=== PATIENT | female | born 1945 | race Two or more races ===

== ENCOUNTER → 2017-01-14 | Outpatient (CLI) | payer MEDICARE ==
[~2017-01-14] MED LIST: /AMIO20TA PO; ALBU17IN INH; ALLO10TA PO; BACT800T5 PO; COLC1TAB14 PO; IMOD2TAB16 PO; KCL PO; LACT10SO15 PO; LEVO50TA4 PO; MAGN400T5 PO; METO2.5T PO; METO25TA2 PO; MIRA255PW PO; PANT40TA2 PO; PRED20TA PO; SENO8.6T9 PO; SPIR25TA2 PO; TORS20TA2 PO; TYLE500T78 PO; VITAD1000T PO; XARE10TA PO; ZETI10TA21 PO; ZYRT10CA PO
--- NOTE | 2017-01-14 14:04 | REP ---
CT of the chest without IV contrast: Comparison is the PA plain film study dated 09/16/2013. There are no infiltrates or effusions. There are no masses or nodules. There is no pneumothorax. There is no mediastinal adenopathy. No axillary adenopathy. The study is insensitive for hilar adenopathy in the absence of IV contrast. Half The thoracic aorta is unremarkable. Cardiac size is normal. There are sternotomy wires. There is degenerative calcification in the mitral annulus. There is no pericardial effusion. In the visualized upper abdomen there is cholelithiasis. There are calcified granulomas in the liver and spleen. The adrenals are unremarkable. Impression: Essentially negative CT study of the chest. There are sternotomy wires and there is degenerative calcification of the mitral annulus. Cardiac size is normal. Calcified granulomas in the liver and spleen. Cholelithiasis. Signed by Andrés Carlton MD 01/14/2017 01:55 P
== END ==
LOC: M RAD 12:24
PROVIDERS: ATTEND Family Medicine Adult Medicine
DX: R06.02 Shortness of breath (principal)

== ENCOUNTER 2017-06-02 12:57 | Emergency (ER) | payer MEDICARE | END 2017-06-02 14:29 | disposition home or self-care (01) | LOC: M ED 12:57 | DX: M54.5 Low back pain (principal); I11.9 Hypertensive heart disease without heart failure; I25.10 Atherosclerotic heart disease of native coronary artery without angina pectoris; J45.909 Unspecified asthma, uncomplicated; Z87.442 Personal history of urinary calculi; Z95.1 Presence of aortocoronary bypass graft; Z79.899 Other long term (current) drug therapy; Z88.8 Allergy status to other drugs, medicaments and biological substances | CPT/HCPCS: 99282 ==

== ENCOUNTER 2017-11-16 06:20 | Day surgery (SDC) | payer MEDICARE ==
[~2017-11-16 06:20] MED LIST changes: -/AMIO20TA PO; +ACETAMINOPHEN 325 MG TAB PO; -ALBU17IN INH; -ALLO10TA PO; -BACT800T5 PO; -COLC1TAB14 PO; -IMOD2TAB16 PO; -KCL PO; -LACT10SO15 PO; -LEVO50TA4 PO; -MAGN400T5 PO; -METO2.5T PO; -METO25TA2 PO; -MIRA255PW PO; -PANT40TA2 PO; -PRED20TA PO; -SENO8.6T9 PO; -SPIR25TA2 PO; -TORS20TA2 PO; -TYLE500T78 PO; -VITAD1000T PO; -XARE10TA PO; -ZETI10TA21 PO; -ZYRT10CA PO
[2017-11-16] MEDS: TROPICAMIDE 1% OPHTH SOLN 2ML OD (06:53)
[2017-11-16] MEDS: CYCLOPENTOLATE 2% OPHTH SOLN 2ML BTL OD (06:53)
[2017-11-16] MEDS: PHENYLEPHRINE 2.5% OPHTH SOL 2ML OD (06:54)
[2017-11-16] MEDS: OFLOXACIN 0.3 % (OCUFLOX) OPTH SOL 5ML OD (06:54)
[2017-11-16] MEDS: LIDOCAINE 3.5 % 1ML OPHTH TOPICAL GEL OU (06:55)
[2017-11-16] MEDS ORDERED: MIDAZOLAM INJ 2 MG/2 ML VIAL (J2250) As Ordered (06:59)
[2017-11-16] MEDS ORDERED: PHENYLEPHRINE HCL 10 % OPHTH. SOL 5ML OD (07:00)
[2017-11-16] MEDS ORDERED: fentaNYL 100 MCG/2 ML INJECTION (J3010) As Ordered (07:00)
[2017-11-16] MEDS: BSS with VANC/TOB/EPI for EYE CASES IR (07:00)
[2017-11-16] MEDS: HEALON DUET (HEALON 10MG/ML 0.55ML & HEALON ENDOCOAT 30MG/ML 0.85ML) As Ordered (09:33)
[2017-11-16] MEDS: MOXIFLOXACIN IN BSS 0.25MG/0.25ML INTRACAMERAL INJ (OR EYE ONLY)(J2280) As Ordered (09:33)
[2017-11-16] MEDS: POVIDONE-IODINE 5% OPHTH PREP SOL 30ML As Ordered (09:33)
[2017-11-16] MEDS: LIDOCAINE 1% SDV 5 ML VIAL As Ordered (09:33)
[2017-11-16] MEDS: TRIAMCINOLONE PRES FR 40 MG/ML 1ML(TRIESENCE)(OR EYE ONLY)(J3300 PER 1MG) As Ordered (09:33)
[2017-11-16] MEDS ORDERED: AcetaZOLAMIDE 500 MG ER CAP As Ordered (10:05)
[2017-11-16] MEDS: AcetaZOLAMIDE 500 MG ER CAP PO (10:06)
[2017-11-16] MEDS ORDERED: ACETAMINOPHEN TAB 650MG DOSE (2X325MG) PO (10:15)
[2017-11-16] MEDS ORDERED: ONDANSETRON 4MG/2ML VIAL (J2405) IV (10:15)
[2017-11-16] MEDS ORDERED: TRIMETHOBENZAMIDE 300 MG CAP PO (10:15)
== END 2017-11-16 10:24 | disposition home or self-care (01) ==
LOC: M SDC 06:20
DX: H26.9 Unspecified cataract (principal); I25.10 Atherosclerotic heart disease of native coronary artery without angina pectoris; I10 Essential (primary) hypertension; Z95.1 Presence of aortocoronary bypass graft; I48.91 Unspecified atrial fibrillation; K21.9 Gastro-esophageal reflux disease without esophagitis; G47.30 Sleep apnea, unspecified; J45.909 Unspecified asthma, uncomplicated; E03.9 Hypothyroidism, unspecified; Z79.899 Other long term (current) drug therapy
CPT/HCPCS: 66984

== ENCOUNTER 2017-11-23 09:48 | Day surgery (SDC) | payer MEDICARE ==
[2017-11-23] MEDS: BSS with VANC/TOB/EPI for EYE CASES IR (07:00)
[2017-11-23] MEDS: LIDOCAINE 1% SDV 5 ML VIAL As Ordered (08:05)
[2017-11-23] MEDS: HEALON DUET (HEALON 10MG/ML 0.55ML & HEALON ENDOCOAT 30MG/ML 0.85ML) As Ordered (08:05)
[2017-11-23] MEDS: POVIDONE-IODINE 5% OPHTH PREP SOL 30ML As Ordered (08:05)
[2017-11-23] MEDS: MOXIFLOXACIN IN BSS 0.25MG/0.25ML INTRACAMERAL INJ (OR EYE ONLY)(J2280) As Ordered (08:05)
[2017-11-23] MEDS: TRIAMCINOLONE PRES FR 40 MG/ML 1ML(TRIESENCE)(OR EYE ONLY)(J3300 PER 1MG) As Ordered (08:05)
[~2017-11-23 09:48] MED LIST changes: +MIDAZOLAM INJ 2 MG/2 ML VIAL (J2250) As Ordered; +PHENYLEPHRINE HCL 10 % OPHTH. SOL 5ML OS; +fentaNYL 100 MCG/2 ML INJECTION (J3010) As Ordered
[2017-11-23] MEDS: PHENYLEPHRINE 2.5% OPHTH SOL 2ML OS (11:55)
[2017-11-23] MEDS: OFLOXACIN 0.3 % (OCUFLOX) OPTH SOL 5ML OS (11:55)
[2017-11-23] MEDS: LIDOCAINE 3.5 % 1ML OPHTH TOPICAL GEL OU (11:56)
[2017-11-23] MEDS: CYCLOPENTOLATE 2% OPHTH SOLN 2ML BTL OS (11:56)
[2017-11-23] MEDS: TROPICAMIDE 1% OPHTH SOLN 2ML OS (11:56)
[2017-11-23] MEDS ORDERED: TRIMETHOBENZAMIDE 300 MG CAP PO (14:00)
[2017-11-23] MEDS: AcetaZOLAMIDE 500 MG ER CAP PO (14:11)
== END 2017-11-23 14:34 | disposition home or self-care (01) ==
LOC: M SDC 09:48
DX: H26.9 Unspecified cataract (principal); I48.91 Unspecified atrial fibrillation; I25.10 Atherosclerotic heart disease of native coronary artery without angina pectoris; I11.0 Hypertensive heart disease with heart failure; M10.9 Gout, unspecified; E03.9 Hypothyroidism, unspecified; K21.9 Gastro-esophageal reflux disease without esophagitis; R29.898 Other symptoms and signs involving the musculoskeletal system; M15.0 Primary generalized (osteo)arthritis; R06.02 Shortness of breath; E78.5 Hyperlipidemia, unspecified; L50.9 Urticaria, unspecified; E55.9 Vitamin D deficiency, unspecified; J45.909 Unspecified asthma, uncomplicated; G47.33 Obstructive sleep apnea (adult) (pediatric); J30.9 Allergic rhinitis, unspecified; I50.32 Chronic diastolic (congestive) heart failure; K59.00 Constipation, unspecified; K64.9 Unspecified hemorrhoids; R73.01 Impaired fasting glucose; M54.5 Low back pain; E66.8 Other obesity; Z88.6 Allergy status to analgesic agent; Z88.8 Allergy status to other drugs, medicaments and biological substances; Z79.899 Other long term (current) drug therapy; Z79.01 Long term (current) use of anticoagulants; Z78.0 Asymptomatic menopausal state; Z98.51 Tubal ligation status
CPT/HCPCS: 66984

== ENCOUNTER → 2018-08-04 | Outpatient (REF) | payer MEDICARE ==
[~2018-08-04] MED LIST changes: -ACETAMINOPHEN 325 MG TAB PO; +ALBU17IN INH; +ALLO10TA PO; +AMIO1TAB PO; +BACT800T5 PO; +COLC1TAB14 PO; +IMOD2TAB16 PO; +KCL PO; +LACT10SO15 PO; +LEVO50TA4 PO; +LEVO75TA4 PO; +MAGN400T5 PO; +METO2.5T PO; +METO25TA2 PO; -MIDAZOLAM INJ 2 MG/2 ML VIAL (J2250) As Ordered; +PANT40TA2 PO; -PHENYLEPHRINE HCL 10 % OPHTH. SOL 5ML OS; +POLY1POW4 PO; +PRED20TA PO; +ROBA500T PO; +SENO8.6T9 PO; +SPIR25TA2 PO; +TORS20TA2 PO; +TYLE500T78 PO; +VITAD1000T PO; +XARE10TA PO; +ZETI10TA21 PO; +ZYRT10CA PO; -fentaNYL 100 MCG/2 ML INJECTION (J3010) As Ordered
[2018-08-04 14:09] LABS: PERCENT SATURATION 13.4 % (13.2-45.0)
[2018-08-04 14:14] LABS: FOLATE 12.3 NG/ML
== END ==
LOC: M LAB REF 13:22
PROVIDERS: ATTEND Internal Medicine Nephrology
DX: D64.9 Anemia, unspecified (principal)

== ENCOUNTER → 2018-08-11 | Outpatient (CLI) | payer MEDICARE ==
--- NOTE | 2018-08-12 07:30 | REP ---
REASON FOR EXAM: Kidney disease. Right kidney measures 10.5 x 5.1 x 3.2 cm. Left kidney measures 9.1 x 4.5 x 5 cm. The renal cortical echoes are slightly diffusely increased with preservation of corticomedullary differentiation. The renal cortices appear thin. There are no solid masses. There is no hydronephrosis. Seen in the inferior pole of the right kidney, there is a 1.7 x 1.6 x 1.5 cm sized hypoechoic structure with low level echoes and not exhibiting posterior wall enhancement or increase through transmission. IMPRESSION: 1. There is evidence of medical renal disease. 2. There is a hypoechoic possibly cystic structure arising from the right kidney as described above. Review of prior CT 09/16/2013 showed no evidence of a renal cyst. Significant motion artifact obscured the inferior pole of the right kidney on that exam. I would suggest renal MRI at this time for further evaluation of this area. Electronically Signed by Stanford Chairez DO 08/12/2018 08:28 A
== END ==
LOC: M RAD 12:50
PROVIDERS: ATTEND Internal Medicine Nephrology
DX: N18.3 Chronic kidney disease, stage 3 (moderate) (principal); I12.9 Hypertensive chronic kidney disease with stage 1 through stage 4 chronic kidney disease, or unspecified chronic kidney disease; M1A.30X0 Chronic gout due to renal impairment, unspecified site, without tophus (tophi)

== ENCOUNTER 2019-12-20 20:10 | Emergency (ER) | payer MEDICARE ==
[~2019-12-20] VITALS: Ht 152.4 cm; Wt 86.4 kg
[2019-12-20 20:58] LABS: BASO # 0.1 10^3/uL (0.0-0.2); BASO % 0.3 % (0.0-1.0); EOS # 0.1 10^3/uL (0.0-0.5); EOS % 0.5 % (0.0-3.0); HEMATOCRIT 41.7 % (36.0-47.0); HEMOGLOBIN 13.2 g/dl (12.0-15.5); LYMPH # 0.8 10^3/uL (1.5-5.0); LYMPH % 4.8 % (24.0-44.0); MEAN CORPUSCULAR HEMOGLOBIN 29.5 pg (27.0-33.0); MEAN CORPUSCULAR HGB CONC 31.7 g/dl (32.0-36.5); MEAN CORPUSCULAR VOLUME 93.1 fl (80.0-96.0); MONO # 0.6 10^3/uL (0.0-0.8); MONO % 3.4 % (0.0-5.0); NEUTROPHILS # 14.6 10^3/uL (1.5-8.5); NEUTROPHILS % 90.4 % (36.0-66.0); PLATELET COUNT, AUTOMATED 288 10^3/uL (150-450); RED BLOOD COUNT 4.48 10^6/uL (4.00-5.40); WHITE BLOOD COUNT 16.2 10^3/uL (4.0-10.0)
[2019-12-20 21:13] LABS: INR 0.98; PROTHROMBIN TIME 13.1 SECONDS (12.5-14.3)
--- NOTE | 2019-12-20 21:13 | REPVR ---
PROCEDURE INFORMATION: Exam: XR Chest, 1 View Exam date and time: 12/20/2019 8:26 PM Age: 74 years old Clinical indication: Other: Chest pain TECHNIQUE: Imaging protocol: XR of the chest Views: 1 view. COMPARISON: CT Chest without contrast 01/14/2017 12:35 PM FINDINGS: Lungs: Unremarkable. No consolidation. Pleural space: Unremarkable. No pleural effusion. No pneumothorax. Heart/Mediastinum: Stable cardiomegaly. Bones/joints: Stable changes of prior sternotomy and cardiac valve replacement. IMPRESSION: 1. Cardiomegaly. 2. No acute findings. Electronically signed by: Harman Rivera On 12/20/2019 21:13:22 PM
[2019-12-20] MEDS ORDERED: GI COCKTAIL 50ML BTL(HYOSCYAMINE/MAALOX/LIDOCAINE VISCOUS)(1:3:1) PO ONE (21:15)
[2019-12-20 21:25] LABS: ALBUMIN 3.8 GM/DL (3.2-5.2); BILIRUBIN,DIRECT 0.7 MG/DL (0.0-0.2); CALCIUM LEVEL 9.6 MG/DL (8.8-10.2); CK-MB VALUE MASS 1.6 NG/ML (<3.6); CREATININE FOR GFR 1.69 MG/DL (0.55-1.30); GLOMERULAR FILTRATION RATE 31.5 (>39); MB/CK RELATIVE INDEX 3.14 (< OR =4); TOTAL PROTEIN 7.4 GM/DL (6.4-8.2); TROPONIN I 0.07 NG/ML (< 0.10)
[2019-12-20] MEDS ORDERED: PERCOCET 5MG/325MG TAB PO ONE (22:00)
--- NOTE | 2019-12-20 22:57 | REPVR ---
PROCEDURE INFORMATION: Exam: CT Chest Without Contrast Exam date and time: 12/20/2019 10:28 PM Age: 74 years old Clinical indication: Chest pain TECHNIQUE: Imaging protocol: Computed tomography of the chest without contrast. 3D rendering (Not supervised by radiologist): MIP and/or 3D reconstructed images were created by the technologist. Radiation optimization: All CT scans at this facility use at least one of these dose optimization techniques: automated exposure control; mA and/or kV adjustment per patient size (includes targeted exams where dose is matched to clinical indication); or iterative reconstruction. COMPARISON: CT Chest without contrast 01/14/2017 12:35 PM FINDINGS: Lungs: Unremarkable. No consolidation. No masses. Pleural space: Unremarkable. No pneumothorax. No pleural effusion. Heart: Prior sternotomy and changes of cardiac valve replacements. Mild coronary artery atherosclerotic disease. Normal heart size. No pericardial effusion. Aorta: Unremarkable. No aortic aneurysm. Lymph nodes: Unremarkable. No enlarged lymph nodes. Bones/joints: Skeletal degenerative changes are noted. Soft tissues: Unremarkable. IMPRESSION: 1. No acute findings. 2. Changes of prior sternotomy and cardiac valve replacement. Electronically signed by: Harman Rivera On 12/20/2019 22:56:30 PM
[2019-12-20] MEDS ORDERED: POTASSIUM CHLORIDE 10 MEQ SR TABLET PO ONE (23:00)
[2019-12-20] MEDS ORDERED: PERC5TAB12 PO (23:14)
[2019-12-20] MEDS ORDERED: OXYCODONE/APAP 5MG/325MG(BULK FOR ED) 1 TABLET PO ONE (23:15)
[2019-12-20 23:25] VITALS: BP 131/68
--- NOTE | 2019-12-21 17:49 | ECGEPIP ---
[facility] - ED Test Date: 2019-12-20 Pat Name: JCARLOS DIAS Department: Room: - Gender: Female [employer] Teacher: gabi : 1945 Requested By: MARILUZ Segundo Order Number: [id number] Reading MD: Dwight Starr Measurements Intervals [place] Rate: 94 P: HI: 0 QRS: -41 QRSD: 142 T: 77 QT: 416 QTc: 520 Interpretive Statements Supraventricular rhythm- suspect sinus but noisy baseline LEFT BUNDLE BRANCH BLOCK Comparison tracing not on file Electronically Signed on 12-21-2019 17:48:25 EDT by Dwight Starr
== END 2019-12-21 00:47 | disposition home or self-care (01) ==
LOC: M ED 20:10
DX: S39.012A Strain of muscle, fascia and tendon of lower back, initial encounter (principal); I44.7 Left bundle-branch block, unspecified; M62.830 Muscle spasm of back; I11.9 Hypertensive heart disease without heart failure; K21.9 Gastro-esophageal reflux disease without esophagitis; E03.9 Hypothyroidism, unspecified; J45.909 Unspecified asthma, uncomplicated; Z88.6 Allergy status to analgesic agent; Z88.8 Allergy status to other drugs, medicaments and biological substances; Z79.899 Other long term (current) drug therapy; Z79.01 Long term (current) use of anticoagulants

== ENCOUNTER 2019-12-25 19:57 | Inpatient (IN) | payer MEDICARE ==
[~2019-12-25] VITALS: Ht 152.4 cm; Wt 92.0 kg
[~2019-12-25 19:57] MED LIST changes: +PERC5TAB12 PO
[2019-12-25] MEDS ORDERED: GI COCKTAIL 50ML BTL(HYOSCYAMINE/MAALOX/LIDOCAINE VISCOUS)(1:3:1) PO ONE (20:30)
--- NOTE | 2019-12-25 20:49 | REPVR ---
PROCEDURE INFORMATION: Exam: XR Chest, 1 View Exam date and time: 12/25/2019 8:33 PM Age: 74 years old Clinical indication: Other: Cp; Additional info: Chest pain TECHNIQUE: Imaging protocol: XR of the chest Views: 1 view. COMPARISON: CT Chest without contrast 12/20/2019 10:24 PM FINDINGS: Lungs: Unremarkable. No consolidation. Pleural space: Unremarkable. No pleural effusion. No pneumothorax. Heart/Mediastinum: Cardiomegaly. Bones/joints: Status post sternotomy. IMPRESSION: 1. Cardiomegaly. 2. No acute infiltrates. Electronically signed by: Flip Rodriges On 12/25/2019 20:49:21 PM
[2019-12-25 20:50] LABS: BASO # 0.1 10^3/uL (0.0-0.2); BASO % 0.5 % (0.0-1.0); EOS # 0.2 10^3/uL (0.0-0.5); EOS % 1.1 % (0.0-3.0); HEMATOCRIT 42.1 % (36.0-47.0); HEMOGLOBIN 13.2 g/dl (12.0-15.5); LYMPH % 7.4 % (24.0-44.0); MEAN CORPUSCULAR HEMOGLOBIN 28.8 pg (27.0-33.0); MEAN CORPUSCULAR HGB CONC 31.4 g/dl (32.0-36.5); MEAN CORPUSCULAR VOLUME 91.9 fl (80.0-96.0); MONO # 0.6 10^3/uL (0.0-0.8); MONO % 4.1 % (0.0-5.0); NEUTROPHILS # 11.7 10^3/uL (1.5-8.5); PLATELET COUNT, AUTOMATED 306 10^3/uL (150-450); RED BLOOD COUNT 4.58 10^6/uL (4.00-5.40); WHITE BLOOD COUNT 13.6 10^3/uL (4.0-10.0)
[2019-12-25] MEDS ORDERED: PANTOPRAZOLE 40MG TAB (PROTONIX) PO SCH (21:00)
[2019-12-25 21:04] LABS: INR 0.98; PROTHROMBIN TIME 13.2 SECONDS (12.5-14.3)
[2019-12-25 21:13] LABS: ALBUMIN 3.7 GM/DL (3.2-5.2); BILIRUBIN,DIRECT 0.8 MG/DL (0.0-0.2); BILIRUBIN,TOTAL 1.2 MG/DL (0.2-1.0); TOTAL PROTEIN 7.4 GM/DL (6.4-8.2)
[2019-12-25] MEDS ORDERED: NS 1,000 ML IV ONE (21:30)
[2019-12-25] MEDS: MORPHINE 2 MG/ML 1ML VIAL (J2270) IV PRN ×2 (21:40→22:23)
--- NOTE | 2019-12-25 22:20 | REPVR ---
PROCEDURE INFORMATION: Exam: CT Abdomen And Pelvis Without Contrast Exam date and time: 12/25/2019 9:32 PM Age: 74 years old Clinical indication: Abdominal pain; Localized; Right; Additional info: Right sided abdominal pain TECHNIQUE: Imaging protocol: Computed tomography of the abdomen and pelvis without contrast. Radiation optimization: All CT scans at this facility use at least one of these dose optimization techniques: automated exposure control; mA and/or kV adjustment per patient size (includes targeted exams where dose is matched to clinical indication); or iterative reconstruction. COMPARISON: CT ABD PELVIS W/O CONTRAST 09/16/2013 1:52 PM (The report from this study was not available for review at the time of this interpretation.) FINDINGS: Lungs: The imaged portions of the lung bases are clear. The lungs were not fully imaged. Heart: There is a tricuspid valve prosthesis. Extensive mitral annular calcifications are present. The left atrium is dilated. No pericardial effusion is seen. Liver: There are calcified granulomas in the liver. No liver mass is identified. The contour of the liver is smooth. No hepatomegaly. Gallbladder and bile ducts: The gallbladder is distended and contains rim calcified gallstones. No gallbladder wall thickening, pericholecystic fluid, or inflammatory fat stranding is noted around the gallbladder. No intrahepatic biliary ductal dilation is noted. The common bile duct is dilated and measures 20 mm in diameter at the level of the becca hepatis and there is a 7 mm calcified stone in the distal portion of the common bile duct that was not present in the prior CT on 09/16/2013 (image 44 of the coronal series 202 and image 68 of the axial series 201). Pancreas: Unremarkable. No ductal dilation. Spleen: There are multiple calcified granulomas in the spleen. No splenomegaly. Adrenals: Unremarkable. No adrenal mass is noted. Kidneys and ureters: There is a 2 cm benign-appearing exophytic cyst arising from the inferior pole of the right kidney, which is stable compared to the prior CT abdomen and pelvis on 09/16/2013 and for which further imaging follow-up is not necessary. The unenhanced left kidney is unremarkable. No stones are noted in the kidneys or ureters. There is no hydronephrosis or hydroureter. Stomach and bowel: The stomach and small bowel are unremarkable. There is sigmoid diverticulosis without evidence for diverticulitis. There is no evidence for a bowel obstruction, colitis, pneumatosis intestinalis, intussusception, volvulus, or perforated viscus. Appendix: Normal. There is no evidence for appendicitis. Intraperitoneal space: No free air. No ascites. No asbcess. Retroperitoneal space: No fluid collection. No mass. Vasculature: There is no abdominal aortic aneurysm or intramural hematoma. There are moderate atherosclerotic calcifications. Incidental note is made of small round calcifications in the pelvis, which are compatible with phleboliths. Lymph nodes: No enlarged lymph nodes. Urinary bladder: The partially distended urinary bladder is unremarkable. No stones or masses are seen in the bladder. Reproductive: The anteverted uterus contains a punctate calcification in the fundus that is unchanged compared to the prior CT abdomen and pelvis on 09/16/2013 and may represent a calcified uterine fibroid. The ovaries are age appropriate. Bones/joints: Median sternotomy suture wires were partially imaged. There is no fracture or bony destructive changes. There are degenerative changes in the lumbar spine. There is a mild retrolisthesis of L2 on L3, a mild retrolisthesis of L3 on L4, and a grade 1 anterolisthesis of L4 on L5. No pars defect is noted. 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 There are degenerative changes and chondrocalcinosis involving the pubic symphysis. There is partial ankylosis of the left sacroiliac joint. Soft tissues: There are small bilateral fat containing indirect inguinal hernias, which are similar in appearance compared to the prior CT abdomen and pelvis on 09/16/2013. There is laxity of the anterior abdominal wall musculature. IMPRESSION: 1. Cholelithiasis without CT evidence for cholecystitis. 2. Choledocholithiasis and dilation of the common bile duct (20 mm in diameter). 3. No stones in the kidneys, ureters, or urinary bladder. No hydronephrosis or hydroureter. 4. Sigmoid diverticulosis without evidence for diverticulitis. 5. Normal appendix. 6. Small bilateral fat containing indirect inguinal hernias, which are similar in appearance compared to the prior CT abdomen and pelvis on 09/16/2013. Electronically signed by: Sergey Morrison On 12/25/2019 22:20:28 PM
[2019-12-25] MEDS ORDERED: ZYLO300T6 PO (23:10)
[2019-12-25] MEDS ORDERED: CETI10TA PO (23:10)
[2019-12-25] MEDS ORDERED: POTA10TA17 PO (23:10)
[2019-12-25] MEDS ORDERED: COLC1TAB13 PO (23:10)
[2019-12-25] MEDS ORDERED: SPIR-10 PO (23:10)
[2019-12-25] MEDS ORDERED: METO25TA PO (23:10)
[2019-12-25] MEDS ORDERED: TORS20TA2 PO ×2 (23:10)
[2019-12-25] MEDS ORDERED: PANT40TA29 PO (23:10)
[2019-12-25] MEDS ORDERED: XARE15TA PO (23:10)
[2019-12-25] MEDS ORDERED: SYNT75TA PO (23:10)
[2019-12-25] MEDS ORDERED: DOCU100C17 PO (23:10)
[2019-12-25] MEDS ORDERED: AMIO200T3 PO (23:10)
[2019-12-25] MEDS ORDERED: POTA10CA32 PO (23:10)
[2019-12-25] MEDS ORDERED: COLCHICINE 0.6 MG TAB PO PRN (23:30)
[2019-12-26] VITALS (10 sets, daily range): BP systolic 99–130; BP diastolic 61–72
--- NOTE | 2019-12-26 00:25 | REPVR ---
PROCEDURE INFORMATION: Exam: US Abdomen, Limited; Right Upper Quadrant Exam date and time: 12/26/2019 12:11 AM Age: 74 years old Clinical indication: Abdominal pain; Acute; Additional info: Choledocholithiasis TECHNIQUE: Imaging protocol: US abdomen. Real time ultrasound with image documentation. Limited exam focused on the right upper quadrant. COMPARISON: 1. RENAL US 08/11/2018 1:[address] ABD PELVIS W/O CONTRAST 12/25/2019 9:13:08 PM FINDINGS: Liver: The echogenicity of the liver is within normal limits. No liver mass is identified from the images obtained. The contour of the liver is smooth. The calcified granulomas seen in the liver in the CT abdomen and pelvis on 12/25/2019 are not visualized in this study, which is due to differences in technique. Gallbladder: There are several gallstones in the gallbladder. No gallbladder wall thickening or pericholecystic fluid is present. No sonographic Cabral's sign was reported by the cytogenetics technologist. The gallbladder measures 12.9 cm x 4.1 cm x 4.7 cm. Common bile duct: The common bile duct is dilated and measures 9 mm in diameter at the level of the becca hepatis. The distal portion of the common bile duct was obscured by gas in the stomach and bowel. Pancreas: The imaged portion of the pancreas is unremarkable. The tail of pancreas is obscured by gas in the stomach and bowel. Right kidney: The right kidney measures 10.3 cm in length. The renal cortical echogenicity is within normal limits. There is a 1.5 cm benign-appearing simple exophytic cyst arising from the inferior pole of the right kidney for which further imaging follow-up is not recommended. There is no hydronephrosis. No obvious stones are seen in the renal collecting system. Intraperitoneal space: No free fluid is seen from the images obtained. IMPRESSION: 1. Cholelithiasis without sonographic evidence for cholecystitis. 2. Dilated common bile duct. The distal portion of the common bile duct was obscured by gas in the stomach and bowel. COMMENTS: Consistent with the [employer]'s Incidental Findings Committee white paper (J Am Jaqueline Radiol 2018): Any incidental renal lesion less than 1 cm or classified as too small to characterize, or any incidental cystic renal lesion characterized as simple-appearing, is likely benign. No follow-up imaging is recommended for these lesions per consensus recommendations based on imaging criteria. Electronically signed by: Sergey Morrison On 12/26/2019 00:24:46 AM
--- NOTE | 2019-12-26 01:10 | HPEPDOC ---
[facility] Medical History & Physical Date of Admission Dec 25, 2019 Date of Service: Dec 25, 2019 Attending Physician: DEREJE CALIXTO DO History and Physical CHIEF COMPLAINT: Chest pain HISTORY OF PRESENT ILLNESS: Jia Mcneil is a 74 YO F with history of atrial fibrillation on Xarelto, CAD status post multiple cardiac cath, history of tricuspid valve repair who first presented to the ED on 12/20/2019 complaining of chest and epigastric pain radiating to her back. She stated that the pain started after eating lunch and worsened throughout the day. She also reports nausea and some vomiting during that time. On the day, cardiac markers were trended, EKG was normal and she was sent home with pain regimen. Her epigastric pain worsened, which prompted her return to the ED tonight. She stated that she ate a bowl of clam chowder for lunch and within an hour experienced 10/10 epigastric pain radiating to her back and right shoulder. She tried taking antacids and pain medication and it was not relieved. In the ED, she was found to have cholelithiasis and dilated common bile duct, mild leukocytosis and mildly elevated AST. She also was found to have elevated lipase at 846. PAST MEDICAL HISTORY: 1. ARETHA 2. CKD 3 3. HTN 4. GERD 5. CAD s/p multiple LHC, no stents 6. Hypothyroidism 7. Asthma 8. Gout PAST SURGICAL HISTORY: 1. Tricuspid valve repair 2009 2. Cardiac cath in 2011, 2013, 2017 3. C section x 4 SOCIAL HISTORY: Never smoker, denies alcohol, denies illicit drug use FAMILY HISTORY: Noncontributory ALLERGIES: Please see below. REVIEW OF SYSTEMS: Constitutional: No Weight Change, No Fever, No Chills, No Night Sweats, No Fatigue, No Malaise ENT/Mouth: No Hearing Changes, No Ear Pain, No Nasal Congestion, No Sinus Pain, No Hoarseness, No sore throat, No Rhinorrhea, No Swallowing Difficulty Eyes: No Eye Pain, No Swelling, No Redness, No Foreign Body, No Discharge, No Vision Changes Cardiovascular: No palpitations, no cold extremities Respiratory: No Cough, No Wheezing, No Smoke Exposure, No Dyspnea Gastrointestinal: Reports severe 10/10 epigastric pain radiating to right shoulder and back, some nausea but no vomiting, denies diarrhea, right upper quadrant pain Genitourinary: No Dysmenorrhea, No DUB, No Dyspareunia, No Dysuria Musculoskeletal: No Arthralgias, No Myalgias, No Joint Swelling, No Joint Stiffness, No Back Pain, No Neck Pain, No Injury History Skin: No Skin Lesions, No Pruritis, No Hair Changes, No Breast/Skin Changes, No Nipple Discharge Neuro: No Weakness, No Numbness, No Paresthesias, No Loss of Consciousness, No Syncope, No Dizziness, No Headache, No Coordination Changes, No Recent Falls Psych: No Anxiety/Panic, No Depression, No Insomnia, No Personality Changes, No Delusions Heme/Lymph: No Bruising, No Bleeding, No Transfusions History, No Lymphadenopathy Endocrine: No Polyuria, No Polydipsia, No Temperature Intolerance HOME MEDICATIONS: Please see below. VITAL SIGNS: see below GENERAL: alert and oriented, in no apparent distress, pleasant and conversant in full sentences. HEENT: PERRL, EOMI, Oral mucous membranes are moist without lesions. NECK: The patient has no noted JVD. No adenopathy is appreciated. No thyromegaly CHEST/LUNGS: Lungs are clear bilaterally without rhonchi, rales, or wheezes. There is no subcutaneous air appreciated. There is no tenderness to the chest wall. HEART:Regular rate and rhythm. No murmurs, rubs, or gallops are appreciated. Distal pulses are 2+. No carotid bruits appreciated. ABDOMEN: Soft, tender to palpation in the right upper quadrant and epigastrum. No rosenbaum/cullens sign. No masses are appreciated. There are no peritoneal signs. There is no [place] sign. EXTREMITIES: No peripheral edema. There is no focal long bone tenderness or deformity. SKIN: The patient is very price appearing. The patients skin is warm and dry, without rashes or lesions. PSYCHIATRIC: AAO x 3, normal mood/affect NEUROLOGIC: The patient has 5/5 strength to the upper and lower extremities bilaterally. Sensation is intact throughout. Deep tendon reflexes are 2+ in all four extremities. There are no deficits to the cranial nerves. LABORATORY DATA: See below. IMAGING: CXR: FINDINGS: Lungs: Unremarkable. No consolidation. Pleural space: Unremarkable. No pleural effusion. No pneumothorax. Heart/Mediastinum: Cardiomegaly. Bones/joints: Status post sternotomy. IMPRESSION: 1. Cardiomegaly. 2. No acute infiltrates. CT ABD/PELVIS: IMPRESSION: 1. Cholelithiasis without CT evidence for cholecystitis. 2. Choledocholithiasis and dilation of the common bile duct (20 mm in diameter). 3. No stones in the kidneys, ureters, or urinary bladder. No hydronephrosis or hydroureter. 4. Sigmoid diverticulosis without evidence for diverticulitis. 5. Normal appendix. 6. Small bilateral fat containing indirect inguinal hernias, which are similar in appearance compared to the prior CT abdomen and pelvis on 09/16/2013. LIVER US: IMPRESSION: 1. Cholelithiasis without sonographic evidence for cholecystitis. 2. Dilated common bile duct. The distal portion of the common bile duct was obscured by gas in the stomach and bowel. MICROBIOLOGY: Please see below. ASSESSMENT: This is a 74-year-old female with atrial fibrillation, CAD who presented with chest pain found to have dilated common bile duct and cholelithiasis with no evidence of cholecystitis. PLAN: 1. Cholelithiasis with dilated common bile duct: -Discussed case with Gastroentrology (Lluvia), who will do ERCP tomorrow. NPO for now. Hold Xarelto for procedure -Liver function/tBili stable -Pain management with Morphine -IV Zofran for nausea 2. Pancreatitis: Lipase slightly elevated in 800s -IVF gentle hydration, pain management at stated 3. Atrial fibrillation: -Rate controlled, Hold Xarelto for procedure tomorrow -Continue home Amiodarone 4. Hypothyroidism: -Continue home Levothyroxine 5. History of CHF? No Echo on file: -Continue Spironolactone, Torsemide for now 6. CKD3: -Cr currently at baseline -Continue allopurinol 7. Hx Gout: -Continue Colchicine DVT ppx: BELEN/SCDs GI ppx: Protonix Vital Signs Vital Signs Date Time Temp Pulse Resp B/P (MAP) Pulse Ox O2 Delivery O2 Flow Rate FiO2 12/25/19 22:45 92 20 151/79 (103) 97 Room Air 12/25/19 19:59 97.6 Laboratory Data Labs 24H Laboratory Tests 2 12/25/19 20:05: Immature Granulocyte % (Auto) 0.9, Neutrophils (%) (Auto) 86.0H, Lymphocytes (%) (Auto) 7.4L, Monocytes (%) (Auto) 4.1, Eosinophils (%) (Auto) 1.1, Basophils (%) (Auto) 0.5, Neutrophils # (Auto) 11.7H, Lymphocytes # (Auto) 1.0L, Monocytes # (Auto) 0.6, Eosinophils # (Auto) 0.2, Basophils # (Auto) 0.1, Nucleated Red Blood Cells % (auto) 0.0, Prothrombin Time 13.2, Prothromb Time International Ratio 0.98, Total Bilirubin 1.2H, Direct Bilirubin 0.8H, Aspartate Amino Transf (AST/SGOT) 60H, Alanine Aminotransferase (ALT/SGPT) 69, Alkaline Phosphatase 204H, Total Protein 7.4, Albumin 3.7, Albumin/Globulin Ratio 1.0L, Lipase 846H 12/25/19 20:26: POC Troponin I (Misc) 0.02 12/25/19 20:29: POC Glucose (Misc Panel) 126H, POC Sodium (Misc Panel) 138, POC Potassium (Misc Panel) 3.1L, POC Chloride (Misc Panel) 92L, POC Total CO2 (Misc Panel) 32.0H, POC Blood Urea Nitrogen (Misc Panel 47H, POC Ionized Calcium (Misc Panel) 4.5, POC Creatinine (Misc Panel) 1.8H, POC Hematocrit (Misc Panel) 46.0 CBC/BMP Laboratory Tests 12/25/19 20:05 Home Medications Scheduled Allopurinol (Zyloprim) 300 Mg Tablet, 300 MG PO DAILY Amiodarone HCl (Amiodarone HCl) 200 Mg Tablet, 200 MG PO Q2D Docusate Sodium (Docusate Sodium) 100 Mg Capsule, 100 MG PO DAILY Levothyroxine Sodium (Synthroid) 75 Mcg Tablet, 75 MCG PO DAILY Pantoprazole Sodium (Pantoprazole Sodium) 40 Mg Tablet.dr, 40 MG PO QHS HAS NOT STARTED YET Potassium Chloride (Potassium Chloride) 10 Meq Capsule.er, 10 MEQ PO BID Rivaroxaban (Xarelto) 15 Mg Tablet, 15 MG PO DAILY Spironolactone (Spironolactone) 25 Mg Tablet, 25 MG PO DAILY Torsemide (Torsemide) 20 Mg Tablet, 20 MG PO DAILY Torsemide (Torsemide) 20 Mg Tablet, 10 MG PO QPM TAKES IN THE AFTERNOON Scheduled PRN Cetirizine HCl (Cetirizine HCl) 10 Mg Tablet, 10 MG PO QHS PRN for ITCHING Colchicine (Colchicine) 0.6 Mg Tablet, 0.6 MG PO DAILY PRN for GOUT FLARE-UP Metolazone (Metolazone) 2.5 Mg Tablet, 2.5 MG PO DAILY PRN for EDEMA TAKES WHEN THERE IS A WEIGHT GAIN OF 2 LBS Potassium Chloride (Potassium Chloride) 10 Meq Tab.er.prt, 10 MEQ PO DAILY PRN for ADDITIONAL SUPPLEMENTATION TAKES WITH METOLAZONE Allergies Coded Allergies: NSAIDS (Non-Steroidal Anti-Inflamma (Verified Allergy, Intermediate, 12/20/19) atorvastatin (Verified Allergy, Intermediate, 12/20/19) clonidine (Verified Allergy, Intermediate, 12/20/19) fosinopril (Verified Allergy, Intermediate, 12/20/19) A-FIB/CHADSVASC A-FIB History Current/History of A-Fib/PAF?: Yes Current PO Anticoag Therapy: Yes GME ATTESTATION GME ATTESTATION My faculty preceptor for this patient encounter was physically present during the encounter and was fully available. All aspects of the patient interview, examination, medical decision making process, and medical care plan development were reviewed and approved by the faculty preceptor. The faculty preceptor is aware and concurs with the plan as stated in the body of this note and will attest to such by his/her cosignature. JUAN ANTONIO SAUNDERS MD Dec 25, 2019 23:06
[2019-12-26] MEDS ORDERED: MORPHINE 2 MG/ML 1ML VIAL (J2270) IV PRN (01:15)
[2019-12-26] MEDS: ONDANSETRON 4MG/2ML VIAL IV PRN ×3 (01:17→19:00)
[2019-12-26] MEDS: LEVOTHYROXINE 75MCG TABLET (0.075MG) PO SCH (05:39)
[2019-12-26 06:22] LABS: HEMATOCRIT 36.5 % (36.0-47.0); MEAN CORPUSCULAR HGB CONC 32.9 g/dl (32.0-36.5); MEAN CORPUSCULAR VOLUME 91.3 fl (80.0-96.0); PLATELET COUNT, AUTOMATED 249 10^3/uL (150-450); WHITE BLOOD COUNT 15.4 10^3/uL (4.0-10.0)
[2019-12-26 06:52] LABS: BILIRUBIN,TOTAL 2.1 MG/DL (0.2-1.0); CREATININE FOR GFR 1.57 MG/DL (0.55-1.30); GLOMERULAR FILTRATION RATE 34.3 (>39); POTASSIUM SERUM 3.3 MEQ/L (3.5-5.1); TOTAL PROTEIN 6.1 GM/DL (6.4-8.2)
--- NOTE | 2019-12-26 07:41 | ECGEPIP ---
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
[2019-12-26] MEDS ORDERED: TORSEMIDE 20 MG TAB PO SCH (09:00)
[2019-12-26] MEDS: AMIODARONE 200 MG TAB (PACERONE) PO SCH (09:00)
[2019-12-26] MEDS: allopurinoL 300 MG TAB PO SCH (09:00)
[2019-12-26] MEDS ORDERED: SPIRONOLACTONE 25 MG TAB PO SCH (09:00)
[2019-12-26] MEDS ORDERED: PIPERACILLIN/TAZOBACTAM SOD 3.375 GM in D5W MINI-BAG PLUS 50 ML IV SCH (10:00)
[2019-12-26] MEDS: PANTOPRAZOLE 40MG VIAL (C9113 PER 1) IV SCH (10:34)
[2019-12-26] MEDS: KCL 10MEQ/100ML SWI (KRUN) 10 MEQ in IV 1 EA IV SCH ×4 (12:01→15:47)
[2019-12-26] MEDS: KCL 20MEQ IN 0.45NS 1000ML 1,000 ML IV SCH ×2 (12:01→20:50)
[2019-12-26] MEDS ORDERED: ISOVUE-300 61% 50ML VIAL As Ordered ONE (14:55)
[2019-12-26] MEDS: PIPERACILLIN/TAZOBACTAM SOD 2.25 GM in D5W MINI-BAG PLUS 50 ML IV SCH ×2 (16:00→17:15)
[2019-12-26] MEDS ORDERED: MIDAZOLAM INJ 2MG/2ML VIAL (J2250 PER 1MG) As Ordered ONE (16:18)
[2019-12-26] MEDS ORDERED: dexameTHASONE 4 MG/ML 1ML VIAL (J1100 PER 1MG) As Ordered ONE (16:19)
[2019-12-26] MEDS ORDERED: propofoL 200 MG/20 ML VIAL As Ordered ONE (16:19)
[2019-12-26] MEDS ORDERED: fentaNYL 100 MCG/2 ML INJECTION (J3010) As Ordered ONE (16:19)
[2019-12-26] MEDS ORDERED: LIDOCAINE 2% 100MG/5ML SDV (FOR ANES.) As Ordered ONE (16:19)
[2019-12-26] MEDS ORDERED: ONDANSETRON 4MG/2ML VIAL As Ordered ONE ×2 (16:19→19:00)
[2019-12-26] MEDS ORDERED: ETOMIDATE INJ 20MG/10ML VIAL As Ordered ONE (16:38)
[2019-12-26] MEDS ORDERED: ZOSYN 2.25GM VIAL (J2543) As Ordered ONE (16:41)
[2019-12-26] MEDS ORDERED: TORSEMIDE 10 MG TABLET PO SCH (17:00)
--- NOTE | 2019-12-26 18:31 | ROOR ---
Patient Name: Jia Mcneil Procedure Date: 12/26/2019 3:15 PM Date of : 1945 Age: 74 Room: Main OR Gender: Female Note Status: Finalized Procedure: ERCP Indications: Suspected bile duct stone(s), Suspected ascending cholangitis, Jaundice Providers: Dwight TEIXEIRA MD Referring MD: 2. Inpatient 2. Inpatient Requesting Provider: Medicines: General Anesthesia Complications: No immediate complications. Procedure: Pre-Anesthesia Assessment: - The heart rate, respiratory rate, oxygen saturations, blood pressure, adequacy of pulmonary ventilation, and response to care were monitored throughout the procedure. The Duodenoscope was introduced through the mouth, and advanced to the duodenum and used to inject contrast into the bile duct. The ERCP was accomplished without difficulty. The patient tolerated the procedure well. Findings: The forest technician film was normal. The esophagus was successfully intubated under direct vision. The scope was advanced to a normal major papilla in the descending duodenum without detailed examination of the pharynx, larynx and associated structures, and upper GI tract. The upper GI tract was grossly normal. A straight Roadrunner wire was passed into the biliary tree. The bile duct was then deeply cannulated over the guidewire. Contrast was injected. I personally interpreted the bile duct images. Ductal flow of contrast was adequate. Image quality was adequate. Contrast extended to the entire biliary tree. Opacification of the entire opacified area was successful. The maximum diameter of the ducts was 12 mm. The lower third of the main bile duct contained a single segmental stenosis 20 mm in length. The main bile duct contained no stones. An 8 mm biliary sphincterotomy was made with a traction (standard) sphincterotome. There was no post-sphincterotomy bleeding. To discover objects, the biliary tree was swept with a 12 mm balloon starting at the bifurcation. Nothing was found. Cells for cytology were obtained by brushing in the lower third of the main bile duct. One 10 mm by 4 cm covered metal stent with no internal flaps was placed into the common bile duct. Bile flowed through the stent. The stent was in good position. Impression: - A single segmental biliary stricture was found in the lower third of the main bile duct. The stricture was indeterminate. - Cells for cytology obtained in the lower third of the main duct. - A biliary sphincterotomy was performed. - The biliary tree was swept and nothing was found. - One covered metal stent was placed into the common bile duct. Recommendation: - Await cytology results. - Watch for pancreatitis, bleeding, perforation, and cholangitis. - Repeat ERCP at appointment to be scheduled to remove stent. - Return to my office in 3 weeks. Dwight Teixeira MD Dwight TEIXEIRA MD 12/26/2019 6:30:49 PM Electronically signed by Dwight TEIXEIRA MD Number of Addenda: 0 Note Initiated On: 12/26/2019 3:15 PM Estimated Blood Loss: Estimated blood loss: none.
[2019-12-26] MEDS ORDERED: LR 1,000 ML IV SCH (19:00)
[2019-12-26] MEDS ORDERED: fentaNYL 100 MCG/2 ML INJECTION (J3010) IV PRN (19:00)
[2019-12-26] MEDS ORDERED: ONDANSETRON 4MG/2ML VIAL IV PRN (19:00)
[2019-12-26] MEDS ORDERED: METOCLOPRAMIDE INJ 10MG/2ML VIAL (J2765 PER 1) IV PRN (19:00)
[2019-12-26] MEDS ORDERED: DEXTROMETHORPHAN 60MG/10ML SUSP 90ML BTL(DELSYM) PO ONE (19:45)
[2019-12-27] VITALS (8 sets, daily range): BP systolic 92–116; BP diastolic 60–68
[2019-12-27] MEDS: PIPERACILLIN/TAZOBACTAM SOD 2.25 GM in D5W MINI-BAG PLUS 50 ML IV SCH ×4 (04:16→21:02)
[2019-12-27] MEDS: KCL 20MEQ IN 0.45NS 1000ML 1,000 ML IV SCH ×2 (05:05→15:20)
[2019-12-27 06:08] LABS: HEMATOCRIT 33.2 % (36.0-47.0); HEMOGLOBIN 10.5 g/dl (12.0-15.5); MEAN CORPUSCULAR HEMOGLOBIN 29.6 pg (27.0-33.0); MEAN CORPUSCULAR HGB CONC 31.6 g/dl (32.0-36.5); MEAN CORPUSCULAR VOLUME 93.5 fl (80.0-96.0); PLATELET COUNT, AUTOMATED 220 10^3/uL (150-450); RED BLOOD COUNT 3.55 10^6/uL (4.00-5.40); WHITE BLOOD COUNT 9.1 10^3/uL (4.0-10.0)
[2019-12-27] MEDS: LEVOTHYROXINE 75MCG TABLET (0.075MG) PO SCH (06:12)
[2019-12-27 06:36] LABS: ALBUMIN 2.6 GM/DL (3.2-5.2); BILIRUBIN,TOTAL 1.5 MG/DL (0.2-1.0); CALCIUM LEVEL 9.5 MG/DL (8.8-10.2); CREATININE FOR GFR 1.35 MG/DL (0.55-1.30); GLOMERULAR FILTRATION RATE 40.8 (>39); POTASSIUM SERUM 4.1 MEQ/L (3.5-5.1); TOTAL PROTEIN 6.5 GM/DL (6.4-8.2)
[2019-12-27] MEDS: allopurinoL 300 MG TAB PO SCH (08:25)
[2019-12-27] MEDS: PANTOPRAZOLE 40MG VIAL (C9113 PER 1) IV SCH (08:25)
[2019-12-27] MEDS ORDERED: PANTOPRAZOLE 40MG VIAL (C9113 PER 1) IV SCH (09:00)
--- NOTE | 2019-12-27 10:05 | IPN ---
DATE: 12/26/2019 SUBJECTIVE: Jia was seen on rounds. She was admitted with common bile duct stone, leukocytosis. She has a history of afebrile for which she is on Xarelto as an outpatient for thromboembolic prophylaxis. She denies any fevers or chills. She has had her biliary pain manifest as atypical chest pain. She also looks to have some evidence of pancreatitis with elevated lipase on admission. Other past medical history includes coronary artery disease with multiple for which she is apparently is intolerant of statin therapy, history of chronic kidney disease stage III with a current renal function at baseline compared to the lab work drawn a few days ago, history of hypothyroidism, asthma, and gout for which she is on prophylactic treatment with Allopurinol. REVIEW OF SYSTEMS: She denies any fevers or chills, current nausea, vomiting, or chest pain. PHYSICAL EXAMINATION: Vital signs: Blood pressure 99/61, pulse 85, 98.2 degrees, no fever overnight. General appearance: Looks mildly jaundiced. HEENT: Unremarkable. Lungs are clear. Heart regular rate and rhythm. Abdomen soft, slightly tender right upper quadrant. No peripheral edema. LABS: Sodium 141, potassium 3.3, BUN 41, creatinine 1.57. Bilirubin is up to 2.1, AST 144, ALT 107, alkaline phosphatase 228, albumin 3, white count is up to 15.4. It was 13.6 yesterday. I do not see where she has received any antibiotic therapy. Hemoglobin 12, platelets 249. Imaging studies were reviewed. IMPRESSION: 1. Cholelithiasis with biliary duct dilatation. Concern of developing cholangitis. I am concerned about the leukocytosis. White count is rising. Bilirubin is up from yesterday as well. Not currently on any antibiotic therapy and systolic blood pressure is now in the 90s. Case was communicated with Dr. Berman who will see the patient today to consider stenting as a temporizing measure. Endoscopic retrograde cholangiopancreatography (ERCP) with sphincterotomy was planned for a few days from now and Xarelto was no longer causing her to be anticoagulated but I am concerned about her pressure becoming soft and the rising white count. I have ordered some Zosyn, IV fluids, stop the diuretics that have been ordered (she has not received these yet). I ordered blood cultures times two, communicated with Dr. Berman who will see the patient today and consider a stent. 2. Atrial fibrillation. Her rate is controlled. I stopped her diuretics in the face of the soft blood pressure. IV fluids have been ordered. Anticoagulants have been held. She is on Amiodarone as an outpatient. We will hold this in anticipation of the procedure today. 3. Hypothyroidism. Hold her levothyroxine today in anticipation of the endoscopy. 4. Hypokalemia. Supplemental potassium has been given intravenously as well as in her IV fluids. 5. Chronic kidney disease. Creatinine is at its baseline. Followup creatinine has been ordered. 6. Question pancreatitis. She had an elevated lipase on admission. She did not have one drawn this morning. I have ordered one for tomorrow morning. Pancreas is unremarkable on CT scan. edited: 01/14/2020 1059 tkf ANA
--- NOTE | 2019-12-27 21:05 | IPNPDOC ---
Subjective Date Seen The patient was seen on 12/27/19. Subjective Chief Complaint/HPI Mrs. Mcneil is a 74 year old female here with cholelithiasis with dilated common bile duct. Last night, GI took her to ERCP. No stones were found, but she had a biliary stricture. It was stented. Biopsy was also taken. Otherwise, this morning, she was still having abdominal pain. Lipase was obtained this morning which was 299. She felt like she could try a diet. Otherwise, denies fever/chills, dyspnea, chest pain, or dysuria. Constitutional: Denies: Chills, Fever Pulmonary: Denies: Dyspnea Cardiovascular: Denies: Chest Pain Gastrointestinal: Reports: Abdominal Pain Genitourinary: Denies: Dysuria Objective Physical Examination General Exam: Positive: Alert, Cooperative, No Acute Distress Eye Exam: Positive: EOMI; Negative: Sclera icteric ENT Exam: Positive: Atraumatic Neck Exam: Positive: Supple Chest Exam: Positive: Clear to auscultation Heart Exam: Positive: Rate Normal, Irregular Rhythm Abdomen Exam: Positive: Normal bowel sounds, Soft, Tenderness (mild tenderness) Extremity Exam: Positive: Edema (mild bilateral pitting edema) Neuro Exam: Positive: Cranial Nerves 3-12 NL Psych Exam: Positive: Mental status NL, Mood NL Assessment /Plan Assessment Mrs. Mcneil is a 74 year old female here with cholelithiasis with dilated common bile duct. Last night she was taken down for ERCP. No stones, but there was biliary stricture. They placed a stent and took a biopsy. Otherwise this morning, she had abdominal pain but better than before. Lipase is low. Will monitor CBC for anemia. Plan/VTE VTE Prophylaxis Ordered?: Yes Plan 1. Cholelithiasis with dilated common bile duct -GI following, recommendations appreciated -ERCP on 12/26/2019. Today is POD#1 -Lipase is low, monitoring for bleeding. 2. Pancreatitis -Lipase initially elevated, but now wnl -Attempt diet 3. Atrial fibrillation -On amiodarone -Xarelto held for surgery 4. Hypothyroidism -Continue levothyroxine 5. CKD -Creatinine improved today, continue to monitor -Unknown baseline 6. Gout -Continue allopurinol 7. DVT ppx - SCD and TEDs VS, I&O, 24H, Fishbone Vital Signs/I&O Vital Signs Date Time Temp Pulse Resp B/P (MAP) Pulse Ox O2 Delivery O2 Flow Rate FiO2 12/27/19 18:00 98.3 87 18 100/68 (79) 96 Room Air 12/27/19 06:00 2.0 I&O- Last 24 Hours up to 6 AM 12/27/19 06:00 Intake Total 3780 ml Output Total 200 ml Balance 3580 ml Laboratory Data 24H LABS Laboratory Tests 2 12/27/19 05:28: Nucleated Red Blood Cells % (auto) 0.0, Anion Gap 4L, Glomerular Filtration Rate 40.8, Calcium Level 9.5, Magnesium Level 2.0, Total Bilirubin 1.5H, Aspartate Amino Transf (AST/SGOT) 79H, Alanine Aminotransferase (ALT/SGPT) 97H, Alkaline Phosphatase 205H, Total Protein 6.5, Albumin 2.6L, Albumin/Globulin Ratio 0.7L, Lipase 299 CBC/BMP Laboratory Tests 12/27/19 05:28 Microbiology Microbiology 12/26/19 Blood Culture - Preliminary, Resulted No growth after 24 hours . All specim... 12/26/19 Blood Culture - Preliminary, Resulted No growth after 24 hours . All specim... 12/26/19 Respiratory Virus Panel (PCR) ([facility]) - Final, Complete MARY MILLS DO Dec 27, 2019 21:05
[2019-12-28 02:00] VITALS: BP 110/60
[2019-12-28] MEDS: PIPERACILLIN/TAZOBACTAM SOD 2.25 GM in D5W MINI-BAG PLUS 50 ML IV SCH ×2 (03:55→09:12)
[2019-12-28 05:36] LABS: HEMATOCRIT 31.8 % (36.0-47.0); MEAN CORPUSCULAR HEMOGLOBIN 29.3 pg (27.0-33.0); MEAN CORPUSCULAR HGB CONC 31.4 g/dl (32.0-36.5); MEAN CORPUSCULAR VOLUME 93.3 fl (80.0-96.0); PLATELET COUNT, AUTOMATED 219 10^3/uL (150-450); RED BLOOD COUNT 3.41 10^6/uL (4.00-5.40)
[2019-12-28] MEDS: LEVOTHYROXINE 75MCG TABLET (0.075MG) PO SCH (05:49)
[2019-12-28 06:00] VITALS: BP 113/69
[2019-12-28 06:07] LABS: ALBUMIN 2.6 GM/DL (3.2-5.2); BILIRUBIN,TOTAL 0.8 MG/DL (0.2-1.0); CALCIUM LEVEL 9.1 MG/DL (8.8-10.2); CREATININE FOR GFR 1.35 MG/DL (0.55-1.30); GLOMERULAR FILTRATION RATE 40.8 (>39); TOTAL PROTEIN 5.5 GM/DL (6.4-8.2)
[2019-12-28] MEDS: allopurinoL 300 MG TAB PO SCH (09:12)
[2019-12-28] MEDS: PANTOPRAZOLE 40MG VIAL (C9113 PER 1) IV SCH (09:12)
[2019-12-28] MEDS: AMIODARONE 200 MG TAB (PACERONE) PO SCH (09:12)
[2019-12-28 10:00] VITALS: BP 113/68
--- NOTE | 2019-12-28 19:21 | DS.PDOC ---
Discharge Summary General Date of Admission Dec 25, 2019 at 23:20 Date of Discharge Dec 28, 2019 Attending Physician: MARY MILLS DO Specialist/Consultants Involve NSAREEN, Dr. Teixeira Discharge Summary PROCEDURES PERFORMED DURING STAY: ERCP with stent placement ADMITTING DIAGNOSES: 1. Cholelithiasis 2. Dilated common bile duct 3. Pancreatitis 4. Atrial fibrillation 5. Hypothyroidism 6. CKD stage III 7. Gout DISCHARGE DIAGNOSES: 1. Cholelithiasis 2. Biliary stricture 3. Pancreatitis 4. Atrial fibrillation 5. Hypothyroidism 6. CKD stage III 7. Gout COMPLICATIONS/CHIEF COMPLAINT: Choledocholithiasis. HISTORY OF PRESENT ILLNESS: Mrs. Mcneil is a 74-year-old female with a atrial fibrillation on Xarelto and CAD status post multiple stents who presents the ED for epigastric pain. It started after eating lunch and worsened throughout the day. She reports associated nausea and vomiting. While in the ED is noted that her lipase was in the 800s and that she had cholelithiasis with dilated common bile duct. Case was discussed with GI who provided to ERCP for the next day. She is kept NPO and IV hydration was given. Xarelto was held. Of note troponins are negative 2 HOSPITAL COURSE: The patient went for an ERCP on 12/26/2019. There is no stones, but a biliary stricture. A biopsy was taken and a stent was placed. Afterwards we monitored for pancreatitis and acute anemia. Repeat lipase was 299. Hemoglobin was 10 which are similar to yesterday's 10.5. Today she felt well, she denied any fever or chills, lightheadedness or dizziness, or dysuria. She tolerated a low-fat diet. She did complain of right-sided abdominal pain which is secondary to surgery. Pain improved on postop day 2 (which is the day of discharge). She felt ready for home and subsequently was discharged home. DISCHARGE MEDICATIONS: Please see below. ALLERGIES: Please see below. PHYSICAL EXAMINATION ON DISCHARGE: VITAL SIGNS: Please see below. GENERAL: Comfortable, in no apparent distress. HEENT: Head normocephalic/atraumatic, EOMI, sclera clear. NECK: Supple RESPIRATORY: Lungs clear to auscultation bilaterally, no rales, wheeze or rhonchi. CARDIOVASCULAR: Regular rate and irregular rhythm. ABDOMEN: Soft, mild tenderness in the left upper quadrant. Normal bowel sounds. MUSCLE SKELETAL: Muscle strength 5/5 in all extremities. NEUROLOGICAL: CN 312 grossly intact, no focal deficits noted. PSYCHOLOGICAL: Normal mood and affect LABORATORY DATA: Please see below. IMAGING: CT of abdomen and pelvis 1. Cholelithiasis without CT evidence for cholecystitis. 2. Choledocholithiasis and dilation of the common bile duct (20 mm in diameter). 3. No stones in the kidneys, ureters, or urinary bladder. No hydronephrosis or hydroureter. 4. Sigmoid diverticulosis without evidence for diverticulitis. 5. Normal appendix. 6. Small bilateral fat containing indirect inguinal hernias, which are similar in appearance compared to the prior CT abdomen and pelvis on 09/16/2013. Ultrasound of abdomen, limited to the right upper quadrant 1. Cholelithiasis without sonographic evidence for cholecystitis. 2. Dilated common bile duct. The distal portion of the common bile duct was obscured by gas in the stomach and bowel. PROGNOSIS: Stable ACTIVITY: As tolerated DIET: Low-fat diet DISCHARGE PLAN: Home DISPOSITION: 01 Home, Self-Care. DISCHARGE INSTRUCTIONS: 1. Keep appointment with GI 2. Follow-up with her PCP within a week. ITEMS TO FOLLOWUP ON ON OUTPATIENT: 1. Pathology report from ERCP biopsy. DISCHARGE CONDITION: Stable. Total time spent on discharge planning, discharge summary, and med reconciliation 45 minutes Vital Signs/I&Os Vital Signs Date Time Temp Pulse Resp B/P (MAP) Pulse Ox O2 Delivery O2 Flow Rate FiO2 12/28/19 10:00 98.4 73 16 113/68 (83) 96 Room Air 12/27/19 06:00 2.0 I&O- Last 24 Hours up to 6 AM 12/28/19 06:00 Intake Total 2950 ml Output Total 1950 ml Balance 1000 ml Laboratory Data Labs 24H Laboratory Tests 2 12/28/19 05:14: Nucleated Red Blood Cells % (auto) 0.0, Anion Gap 6L, Glomerular Filtration Rate 40.8, Calcium Level 9.1, Total Bilirubin 0.8, Aspartate Amino Transf (AST/SGOT) 45H, Alanine Aminotransferase (ALT/SGPT) 71, Alkaline Phosphatase 167H, Total Protein 5.5L, Albumin 2.6L, Albumin/Globulin Ratio 0.9L CBC/BMP Laboratory Tests 12/28/19 05:14 Microbiology Microbiology 12/26/19 Blood Culture - Preliminary, Resulted No Growth after 48 hours. All Specime... 12/26/19 Blood Culture - Preliminary, Resulted No Growth after 48 hours. All Specime... 12/26/19 Respiratory Virus Panel (PCR) ([facility]) - Final, Complete Discharge Medications Scheduled Allopurinol (Zyloprim) 300 Mg Tablet, 300 MG PO DAILY, (Reported) Amiodarone HCl (Amiodarone HCl) 200 Mg Tablet, 200 MG PO Q2D, (Reported) Docusate Sodium (Docusate Sodium) 100 Mg Capsule, 100 MG PO DAILY, (Reported) Levothyroxine Sodium (Synthroid) 75 Mcg Tablet, 75 MCG PO DAILY, (Reported) Pantoprazole Sodium (Pantoprazole Sodium) 40 Mg Tablet.dr, 40 MG PO QHS, (Reported) HAS NOT STARTED YET Potassium Chloride (Potassium Chloride) 10 Meq Capsule.er, 10 MEQ PO BID, (Reported) Rivaroxaban (Xarelto) 15 Mg Tablet, 15 MG PO DAILY, (Reported) Spironolactone (Spironolactone) 25 Mg Tablet, 25 MG PO DAILY, (Reported) Torsemide (Torsemide) 20 Mg Tablet, 20 MG PO DAILY, (Reported) Torsemide (Torsemide) 20 Mg Tablet, 10 MG PO QPM, (Reported) TAKES IN THE AFTERNOON Scheduled PRN Cetirizine HCl (Cetirizine HCl) 10 Mg Tablet, 10 MG PO QHS PRN for ITCHING, (Reported) Colchicine (Colchicine) 0.6 Mg Tablet, 0.6 MG PO DAILY PRN for GOUT FLARE-UP, (Reported) Metolazone (Metolazone) 2.5 Mg Tablet, 2.5 MG PO DAILY PRN for EDEMA, (Reported) TAKES WHEN THERE IS A WEIGHT GAIN OF 2 LBS Potassium Chloride (Potassium Chloride) 10 Meq Tab.er.prt, 10 MEQ PO DAILY PRN for ADDITIONAL SUPPLEMENTATION, (Reported) TAKES WITH METOLAZONE Allergies Coded Allergies: NSAIDS (Non-Steroidal Anti-Inflamma (Verified Allergy, Intermediate, 12/20/19) atorvastatin (Verified Allergy, Intermediate, 12/20/19) clonidine (Verified Allergy, Intermediate, 12/20/19) fosinopril (Verified Allergy, Intermediate, 12/20/19) MARY MILLS DO Dec 28, 2019 19:21
--- NOTE | 2019-12-30 16:46 | ECHO ---
DATE OF PROCEDURE: 12/26/2019 Age: 74 Gender: Female REFERRING PHYSICIAN: Gerardo Tellez MD PATIENT LOCATION: Room 4201 REASON FOR STUDY: Abnormal EKG. 2D MEASUREMENTS: IVS 1.1 cm LV 5.6 cm LVPW 1.1 cm LA 5.0 cm Aorta 3.1 cm IVC 2.2 cm DOPPLER MEASUREMENT Peak velocity across the aortic valve 1.2 m/s Peak velocity across the LVOT 0.76 m/s Mitral E 1.4 Maximum tricuspid valve velocity 2.6 m/s 2D COMMENTS: 1. Mildly dilated left ventricle with normal left ventricular wall thickness, but a moderately to severely depressed global left ventricular systolic function. The anteroseptum and the apex appear to be akinetic. The rest of the left ventricle appears to be mildly hypokinetic. The estimated left ventricular systolic ejection fraction is 30% to 35%. 2. The left atrium appears to be moderately enlarged. The right atrium also appears to be mildly enlarged. The right ventricle seems to be normal in size. 3. Normal aortic root. 4. A small pericardial effusion was noted, no evidence of cardiac tamponade. 5. Mildly calcified aortic valve with normal leaflet excursion. Mildly calcified mitral annulus with normal anterior mitral valve leaflet motion. The pulmonic valve and proximal pulmonary artery branches were not well visualized. 6. The inferior vena cava was mildly enlarged, central venous pressure might be elevated. 7. Doppler detects moderate mitral regurgitation, moderate tricuspid regurgitation. The calculated pulmonary artery systolic pressure varies between 30 to 40 mmHg. Assessment of the left ventricular diastolic function was limited in view of the underlying arrhythmia. IMPRESSION: 1. [id number] global left ventricular systolic dysfunction with regional wall abnormalities consistent with probably a history of coronary artery disease. The left ventricle is mildly enlarged. Assessment of the left ventricular diastolic function was limited. 2. Aortic valve sclerosis without stenosis or aortic regurgitation. 3. Mitral annulus calcification with moderate mitral regurgitation. The left atrium appeared to be moderately enlarged. 4. Moderate tricuspid regurgitation with mild pulmonary hypertension. The right atrium appears to be mildly enlarged. 5. A small pericardial effusion was noted, there was no evidence of cardiac tamponade. 6. There are features of elevated central venous pressure, the inferior vena cava appeared to be mildly enlarged. 7. Not mentioned above, the tricuspid valve appears to be calcified and motion was not well visualized. Cannot rule out underlying tricuspid valve stenosis. MTDD
--- NOTE | 2020-01-01 14:42 | REP ---
ERCP: 78 VIEWS HISTORY: Dilated common bile duct. Procedural imaging. FLUROSCOPY TIME: 2 minutes 5 seconds reported. FINDINGS: A sequence of 78 [id number] fluoroscopically obtained spot radiographs of the abdomen taken during endoscopy document cannulation, contrast injection, balloon catheter manipulation, and wall stent placement in the common bile duct. Guidewire position and contrast injection in the pancreatic duct is also seen. MTDD
== END 2019-12-28 14:56 | disposition home or self-care (01) | DRG 444 ==
LOC: M ED 19:57 → M ED INP 23:20 → ENRESERV 12-26 00:28 → M MSPAV 12-26 01:04
PROVIDERS: ADMIT Internal Medicine; ATTEND Internal Medicine
PROC: 0FB98ZX Excision of Common Bile Duct, Via Natural or Artificial Opening Endoscopic, Diagnostic (ICD-10-PCS; 2019-12-26)
PROC: 0F798DZ Dilation of Common Bile Duct with Intraluminal Device, Via Natural or Artificial Opening Endoscopic (ICD-10-PCS; principal; 2019-12-26 09:55)
DX: K80.71 Calculus of gallbladder and bile duct without cholecystitis with obstruction (principal); K85.90 Acute pancreatitis without necrosis or infection, unspecified; G47.33 Obstructive sleep apnea (adult) (pediatric); N18.30 Chronic kidney disease, stage 3 unspecified; I12.9 Hypertensive chronic kidney disease with stage 1 through stage 4 chronic kidney disease, or unspecified chronic kidney disease; K21.9 Gastro-esophageal reflux disease without esophagitis; I25.10 Atherosclerotic heart disease of native coronary artery without angina pectoris; J45.909 Unspecified asthma, uncomplicated; E03.9 Hypothyroidism, unspecified; E87.6 Hypokalemia; M10.9 Gout, unspecified; K57.30 Diverticulosis of large intestine without perforation or abscess without bleeding; I48.91 Unspecified atrial fibrillation; Z79.01 Long term (current) use of anticoagulants; Z79.899 Other long term (current) drug therapy; Z88.6 Allergy status to analgesic agent; Z88.8 Allergy status to other drugs, medicaments and biological substances

== ENCOUNTER → 2020-07-02 | Outpatient (CLI) | payer MEDICARE ==
[~2020-07-02] MED LIST changes: +AMIO200T3 PO; +CETI10TA PO; +COLC0.6T47 PO; +DOCU100C17 PO; +METO25TA PO; +PANT40TA29 PO; +POTA10CA32 PO; +POTA10TA17 PO; +SPIR-10 PO; +SYNT75TA PO; +XARE15TA PO; +ZYLO300T6 PO
[2020-07-02 16:30] LABS: ALBUMIN 4.1 GM/DL (3.2-5.2); BILIRUBIN,DIRECT 0.2 MG/DL (0.0-0.2); BILIRUBIN,TOTAL 0.6 MG/DL (0.2-1.0); TOTAL PROTEIN 7.5 GM/DL (6.4-8.2)
== END ==
LOC: M LAB 14:49
PROVIDERS: ATTEND Internal Medicine Gastroenterology
DX: K83.1 Obstruction of bile duct (principal); R79.89 Other specified abnormal findings of blood chemistry

== ENCOUNTER → 2020-07-19 | Outpatient (CLI) | payer MEDICARE ==
[~2020-07-19] MED LIST changes: +ALDA25TA2 PO; +SLOWTAB2 PO
== END ==
LOC: M LABSMTC 08:18
PROVIDERS: ATTEND Anesthesiology
DX: Z01.818 Encounter for other preprocedural examination (principal); Z11.52 Encounter for screening for COVID-19

== ENCOUNTER 2020-07-24 13:26 | Day surgery (SDC) | payer MEDICARE ==
[~2020-07-24] VITALS: Ht 152.4 cm; Wt 86.8 kg
[~2020-07-24 13:26] MED LIST changes: +LIDOCAINE 1% MDV 20ML VIAL SQ PRN; +LR 1,000 ML IV ONE
[2020-07-24] MEDS ORDERED: ISOVUE-300 61% 50ML VIAL As Ordered ONE (16:21)
[2020-07-24] MEDS ORDERED: SUGAMMADEX SODIUM 500 MG/5 ML VIAL (BRIDION) As Ordered ONE (16:26)
[2020-07-24] MEDS ORDERED: LIDOCAINE 2% INJ 100 MG/5 ML SYRINGE As Ordered ONE (16:26)
[2020-07-24] MEDS ORDERED: propofoL 200 MG/20 ML VIAL As Ordered ONE (16:26)
[2020-07-24] MEDS ORDERED: dexameTHASONE 4 MG/ML 1ML VIAL (J1100 PER 1MG) As Ordered ONE (16:26)
[2020-07-24] MEDS ORDERED: ROCURONIUM BROMIDE 50 MG/5 ML VIAL As Ordered ONE (16:26)
[2020-07-24] MEDS ORDERED: ONDANSETRON 4MG/2ML VIAL As Ordered ONE (16:26)
[2020-07-24] MEDS ORDERED: MIDAZOLAM INJ 2MG/2ML VIAL (J2250 PER 1MG) As Ordered ONE (16:27)
[2020-07-24] MEDS ORDERED: fentaNYL 100 MCG/2 ML INJECTION (J3010) As Ordered ONE ×3 (16:27→18:23)
[2020-07-24] MEDS ORDERED: LIDOCAINE 2% 100MG/5ML SDV (FOR ANES.) As Ordered ONE (16:30)
[2020-07-24] MEDS ORDERED: PHENYLephrine 500MCG 5ML (100MCG/ML) SYRINGE As Ordered ONE (17:11)
[2020-07-24] MEDS ORDERED: oxyCODONE 5MG TAB PO PRN (18:35)
[2020-07-24] MEDS ORDERED: fentaNYL 100 MCG/2 ML INJECTION (J3010) IV PRN (18:35)
[2020-07-24] MEDS ORDERED: ONDANSETRON 4MG/2ML VIAL IV PRN (18:35)
[2020-07-24] MEDS ORDERED: LR 1,000 ML IV SCH (18:35)
[2020-07-24] MEDS ORDERED: HYDROMORPHONE HCL 0.5 MG/ 0.5 ML SYRINGE (J1170 PER 1) IV PRN (18:35)
--- NOTE | 2020-07-24 18:39 | ROOR ---
Patient Name: Jia Mcneil Procedure Date: 07/24/2020 4:26 PM Date of : 1945 Age: 74 Room: [facility] Gender: Female Note Status: Finalized Procedure: ERCP Indications: Biliary stent removal, Diagnostic sampling (s/p ERCP 12/26/19-previous sphincterotomy, cytology brushings for suspected benign distal biliary stricture, wallstent placement. Her EUS 06/06/20 was unremarkable for pancreatic/biliary lesions. Pt is here to have wall stent removed, and for repeat biopsy of biliary stricture, if still present) Providers: Dwight REYES MD Referring MD: Michael Castillo DO Requesting Provider: Medicines: Monitored Anesthesia Care Complications: No immediate complications. Procedure: Pre-Anesthesia Assessment: - The heart rate, respiratory rate, oxygen saturations, blood pressure, adequacy of pulmonary ventilation, and response to care were monitored throughout the procedure. The Duodenoscope was introduced through the mouth, and advanced to the duodenum and used to inject contrast into the bile duct. The ERCP was accomplished without difficulty. The patient tolerated the procedure well. The Endoscope was introduced through the mouth, and advanced to the duodenum and used to locate the major papilla. The Duodenoscope was introduced through the mouth, and advanced to the duodenum and used to inject contrast into the bile duct. Findings: A biliary stent was visible on the elevator examiner and adjuster film. The esophagus was successfully intubated under direct vision without detailed examination of the pharynx, larynx, and associated structures, and upper GI tract. The upper GI tract was grossly normal. One covered metal stent originating in the biliary tree was emerging from the major papilla. The stent was partially occluded. One stent was removed from the biliary tree using a rat-toothed forceps and sent for cytology. A straight Roadrunner wire was passed into the biliary tree. The 9 mm balloon was passed over the guidewire and the bile duct was then deeply cannulated. Contrast was injected. I personally interpreted the bile duct images. Ductal flow of contrast was adequate. Image quality was adequate. Contrast extended to the entire biliary tree. The biliary tree was swept with a 9 mm balloon starting at the bifurcation. Air bubbles and one single 6 mm stone was seen on occlusion cholangiogram. The bile duct was swept with the 9 mm balloon. All stones were removed. The distal bile duct does no longer show any stricturing. The site of the previously seen stricture in the lower third of the main bile duct was biopsied with a cold forceps for histology. Cells for cytology were obtained by brushing in the lower third of the main bile duct. Impression: - One stent was removed from the biliary tree. The papilla is widely patent. - The gallbladder fills partially and contains several stones. - Occlusion cholangiogram showed choledocholithiasis/6 mm stone.The biliary tree was swept with a 9 mm balloon and the stone was extracted. - Occlusion cholangiogram shows no further stricture in the distal bile duct. - Biopsy was performed in the lower third of the main duct. - Cells for cytology obtained in the lower third of the main duct. Recommendation: - Observe patient's clinical course. - Resume Xarelto (rivaroxaban) at prior dose tomorrow. - I will make a surgical consultation for consideration of cholecystectomy at the next available appointment. - Return to my office in 2 months. - Patient has a contact number available for emergencies. The signs and symptoms of potential delayed complications were discussed with the patient. Return to normal activities tomorrow. Written discharge instructions were provided to the patient. Procedure Code(s): --- Professional --- 44796, Endoscopic retrograde cholangiopancreatography (ERCP); with removal of foreign body(s) or stent(s) from biliary/pancreatic duct(s) 12820, Endoscopic retrograde cholangiopancreatography (ERCP); with removal of calculi/debris from biliary/pancreatic duct(s) 24154, Endoscopic retrograde cholangiopancreatography (ERCP); with biopsy, single or multiple Diagnosis Code(s): --- Professional --- Z46.59, Encounter for fitting and adjustment of other gastrointestinal appliance and device K80.50, Calculus of bile duct without cholangitis or cholecystitis without obstruction T85.590A, Other mechanical complication of bile duct prosthesis, initial encounter CPT copyright 2019 [employer]. All rights reserved. The codes documented in this report are preliminary and upon medical record coder review may be revised to meet current compliance requirements. Dwight Reyes MD Dwight REYES MD 07/24/2020 6:38:46 PM Electronically signed by Dwight REYES MD Number of Addenda: 0 Note Initiated On: 07/24/2020 4:26 PM Estimated Blood Loss: Estimated blood loss: none.
[2020-07-24 19:40] VITALS: BP 123/60
--- NOTE | 2020-07-25 12:22 | REP ---
INDICATION: BILE DUCT STRICTURE, STENT FOR REMOVAL. COMPARISON: 12/26/2019. TECHNIQUE: Multiple C-arm views right upper quadrant during ERCP. FINDINGS: Multiple C-arm views show apparent removal of common bile duct stent, contrast injection into the biliary system, which is partially opacified, as well as balloon catheter manipulation. IMPRESSION: 8 minutes 47 seconds fluoroscopy time utilized. <Electronically signed by Andrés Gresham > 07/25/20 1215
== END 2020-07-24 19:40 | disposition home or self-care (01) ==
LOC: M SDC 13:26
PROVIDERS: ATTEND Internal Medicine Gastroenterology
DX: K80.50 Calculus of bile duct without cholangitis or cholecystitis without obstruction (principal); I50.9 Heart failure, unspecified; I48.91 Unspecified atrial fibrillation; M10.9 Gout, unspecified; E11.9 Type 2 diabetes mellitus without complications; E03.9 Hypothyroidism, unspecified; N28.9 Disorder of kidney and ureter, unspecified; I25.10 Atherosclerotic heart disease of native coronary artery without angina pectoris; I11.9 Hypertensive heart disease without heart failure; K21.9 Gastro-esophageal reflux disease without esophagitis; J45.909 Unspecified asthma, uncomplicated; G47.9 Sleep disorder, unspecified; R06.02 Shortness of breath; Z88.8 Allergy status to other drugs, medicaments and biological substances; Z79.899 Other long term (current) drug therapy; Z79.01 Long term (current) use of anticoagulants
CPT/HCPCS: 43261; 43264; 43275; 74330; 88108; 88300; 88305; J1100; J2250; J2370; J2405; J3010; Q9967

== ENCOUNTER → 2020-09-17 | Outpatient (CLI) | payer MEDICARE ==
[~2020-09-17] MED LIST changes: -LIDOCAINE 1% MDV 20ML VIAL SQ PRN; -LR 1,000 ML IV ONE
== END ==
LOC: M LABSMTC 09:33
PROVIDERS: ATTEND Anesthesiology
DX: Z01.818 Encounter for other preprocedural examination (principal); Z11.52 Encounter for screening for COVID-19

== ENCOUNTER 2020-09-22 07:29 | Day surgery (SDC) | payer MEDICARE ==
[2020-09-22] VITALS (9 sets, daily range): BP systolic 105–125; BP diastolic 61–70; O2SAT 90–96
[~2020-09-22] VITALS: Ht 152.4 cm; Wt 87.6 kg
[~2020-09-22 07:29] MED LIST changes: +LR 1,000 ML IV ONE
[2020-09-22] MEDS ORDERED: fentaNYL 100 MCG/2 ML INJECTION (J3010) As Ordered ONE (08:25)
[2020-09-22] MEDS ORDERED: LIDOCAINE 2% 100MG/5ML SDV (FOR ANES.) As Ordered ONE (08:25)
[2020-09-22] MEDS ORDERED: ONDANSETRON 4MG/2ML VIAL As Ordered ONE (08:25)
[2020-09-22] MEDS ORDERED: propofoL 200 MG/20 ML VIAL As Ordered ONE (08:25)
[2020-09-22] MEDS ORDERED: ROCURONIUM BROMIDE 50 MG/5 ML VIAL As Ordered ONE (08:25)
[2020-09-22] MEDS ORDERED: METOCLOPRAMIDE INJ 10MG/2ML VIAL (J2765 PER 1) As Ordered ONE (08:25)
[2020-09-22] MEDS ORDERED: MIDAZOLAM INJ 2MG/2ML VIAL (J2250 PER 1MG) As Ordered ONE (08:25)
[2020-09-22] MEDS ORDERED: BUPIVACAINE/EPIN 0.25% 30 ML VIAL As Ordered ONE (09:20)
[2020-09-22] MEDS ORDERED: SUGAMMADEX SODIUM 500 MG/5 ML VIAL (BRIDION) As Ordered ONE (10:40)
[2020-09-22] MEDS ORDERED: dexameTHASONE 4 MG/ML 1ML VIAL (J1100 PER 1MG) As Ordered ONE (10:40)
[2020-09-22] MEDS ORDERED: ACETAMINOPHEN 1000MG 100ML IV BTL (OFIRMEV) (J0131 PER 10MG) As Ordered ONE (10:40)
[2020-09-22] MEDS ORDERED: METOCLOPRAMIDE INJ 10MG/2ML VIAL (J2765 PER 1) IV PRN (11:15)
[2020-09-22] MEDS ORDERED: ONDANSETRON 4MG/2ML VIAL IV PRN (11:15)
[2020-09-22] MEDS ORDERED: LR 1,000 ML IV SCH (11:15)
[2020-09-22] MEDS ORDERED: oxyCODONE 5MG TAB PO PRN (11:15)
[2020-09-22] MEDS ORDERED: NORCO, ANEXSIA 5/325MG TABLET (HYDROcodone/ACETAMINOPHEN) PO PRN (11:15)
[2020-09-22] MEDS ORDERED: fentaNYL 100 MCG/2 ML INJECTION (J3010) IV PRN (11:15)
[2020-09-22] MEDS: MEPERIDINE INJ 25 MG/ML VIAL (J2175) IV PRN ×2 (11:25→11:30)
--- NOTE | 2020-09-22 12:08 | RO ---
OPERATIVE NOTE DATE OF OPERATION: 09/22/2020 PREOPERATIVE DIAGNOSIS: Symptomatic cholelithiasis. POSTOPERATIVE DIAGNOSIS: Symptomatic cholelithiasis. PROCEDURE: Robotic cholecystectomy. SURGEON: Andrés Eckert DO LASTING FLOORWORKER: Jannet Corona ANESTHESIA: General. EBL: 5. COMPLICATIONS: None. INDICATIONS FOR PROCEDURE: The patient is a 74-year-old female who presents with right upper quadrant pain and was found to have symptomatic cholelithiasis. Recommendation was to proceed with robotic repair. Risks and benefits of the procedure not limited to but including bleeding, infection, hernias, damage to surrounding structures, need for further surgery were discussed in detail with the patient, informed consent obtained, procedure was planned. DESCRIPTION OF PROCEDURE: The patient was brought back to operating room 7, after sufficient sedation the abdomen was sterilely prepped and draped. Time out was done to confirm proper patient, proper procedure. Following that 8 mm incision was made in the left upper quadrant, Veress needle was inserted and abdomen was insufflated to 15 mmHg. Veress needle was then removed and 8 mm Optiview port was used to gain access to the abdomen. Once the abdomen was entered three more ports were placed across the right upper quadrant after bluntly taking down some adhesions along the anterior abdominal midline. Once the ports were all in place the robot was docked. From the console the fundus of the gallbladder was elevated up toward the right shoulder. Omental adhesions were gently taken down using blunt and sharp dissection from the abdominal wall, the liver and gallbladder itself. Once those were free the gallbladder was elevated up in the air. The cystic duct and cystic artery were dissected free using combination of blunt and sharp dissection. Once they were both identified they were doubly clipped and cut. The gallbladder was then dissected free from the gallbladder fossa, placed inside 5 mm Endo Catch bag and brought out through the right lateral port site. The abdomen was examined to confirm hemostasis. The abdomen was desufflated and skin incisions were closed with 4-0 Vicryl subcuticular sutures. The abdomen was cleaned and dried; Steri-Strips, 4 x 4 and tapes were applied. This ended the procedure.
[2020-09-22] MEDS ORDERED: PANTOPRAZOLE 40MG TAB (PROTONIX) PO SCH (21:00)
[2020-09-23 02:00] VITALS: BP 122/56
[2020-09-23 06:00] VITALS: BP 114/59
[2020-09-23 08:30] VITALS: O2SAT 96
[2020-09-23] MEDS ORDERED: HYDR-3715 PO (08:55)
[2020-09-23 09:32] VITALS: O2SAT 95
[2020-09-23] MEDS ORDERED: ACETAMINOPHEN TAB 650MG DOSE (2X325MG) PO ONE (09:45)
[2020-09-23 10:00] VITALS: BP 117/74
--- NOTE | 2020-09-23 10:20 | DSES ---
DISCHARGE SUMMARY DATE OF ADMISSION: 09/22/2020 DATE OF DISCHARGE: 09/23/2020 ADMISSION DIAGNOSIS: Cholelithiasis. DISCHARGE DIAGNOSIS: Cholelithiasis. HOSPITAL COURSE: The patient is a 74-year-old female who presented on the for an elective robotic cholecystectomy. Surgery was uneventful. Postoperatively, she had some difficulty with oxygenation due to her underlying history of obstructive sleep apnea. She is noncompliant with her home CPAP machine. Because of that, anesthesia decided that she should stay overnight for monitoring. This morning, she has been doing well. Her oxygen saturations have been good. No problems with nausea, vomiting or abdominal pains. Her pain is controlled with just Tylenol. PLAN: The plan is to discharge home this morning. She will follow-up with me in the office in two weeks. All of her questions were answered.
== END 2020-09-23 12:25 | disposition home or self-care (01) ==
LOC: M SDC 07:29 → M MSPAV 14:25 → M SDC 09-23 12:25
PROVIDERS: ATTEND Surgery
DX: K80.10 Calculus of gallbladder with chronic cholecystitis without obstruction (principal); I48.91 Unspecified atrial fibrillation; I25.10 Atherosclerotic heart disease of native coronary artery without angina pectoris; I10 Essential (primary) hypertension; K21.9 Gastro-esophageal reflux disease without esophagitis; G47.33 Obstructive sleep apnea (adult) (pediatric); E03.9 Hypothyroidism, unspecified; Z79.01 Long term (current) use of anticoagulants; Z79.899 Other long term (current) drug therapy; Z88.8 Allergy status to other drugs, medicaments and biological substances
CPT/HCPCS: 47562; 88304; J0131; J1100; J2175; J2250; J2405; J2765; J3010; S2900

== ENCOUNTER → 2020-10-01 | Outpatient (REF) | payer MEDICARE ==
[~2020-10-01] MED LIST changes: +HYDR-3715 PO; -LR 1,000 ML IV ONE
== END ==
LOC: M LAB REF 15:40
PROVIDERS: ATTEND Physician Assistant
DX: T81.49XA Infection following a procedure, other surgical site, initial encounter (principal)

== ENCOUNTER → 2020-12-08 | Outpatient (CLI) | payer MEDICARE ==
--- NOTE | 2020-12-09 08:42 | REP ---
INDICATION: OBSTRUCTION OF BILE DUCT/ MRCP. COMPARISON: CT 12/25/2019 as well as other prior exams. TECHNIQUE: Multiple heavily T2 weighted sequences are obtained in the axial and coronal planes. 3D MIP reconstruction images are performed. FINDINGS: There is no intrahepatic biliary dilatation. There is no gross biliary stricture and no focal dilatation. Common bile duct has a maximum diameter of approximately 10 mm. Pancreatic duct is normal in caliber. There has been a prior cholecystectomy. There is no evidence of choledocholithiasis. The visualized liver, spleen, and adrenals are grossly unremarkable. There is a cystic structure of the lower pole the right kidney proximally 2.2 cm in diameter. In the head of the pancreas there is a 1 cm cystic structure. This appears to have been present on the prior CT of 12/25/2019. I see no free fluid in the visualized abdomen. Two mildly enlarged portal lymph nodes appears similar to prior studies measuring 1.3 and 1.5 cm in short axis dimension. IMPRESSION: Common bile duct 10 mm status post cholecystectomy. There is no evidence of choledocholithiasis or definite stricture. Pancreatic duct normal in caliber. In the head of the pancreas there is a 1 cm cystic structure which appears to have been present on the prior CT of 12/25/2019. The size appears grossly stable.Recommend follow-up MRI of the pancreas with and without contrast in 3-6 months. <Electronically signed by Andrés Gresham > 12/09/20 0801
== END ==
LOC: M RAD 17:16
PROVIDERS: ATTEND Internal Medicine Gastroenterology
DX: K83.1 Obstruction of bile duct (principal)

== ENCOUNTER → 2021-03-16 | Outpatient (CLI) | payer MEDICARE ==
[~2021-03-16] MED LIST changes: -AMIO200T3 PO; +AMIO200T49 PO; +PROHANCE 279.3MG/ML 15ML VIAL ONE; +PROHANCE 279.3MG/ML 5ML VIAL ONE
== END ==
LOC: M PLAIMG 12:58
PROVIDERS: ATTEND Internal Medicine Gastroenterology
DX: K86.2 Cyst of pancreas (principal); K83.1 Obstruction of bile duct; E83.42 Hypomagnesemia
CPT/HCPCS: 74183; 83735; A9576

== ENCOUNTER → 2021-03-16 | Outpatient (REF) | payer MEDICARE ==
[~2021-03-16] MED LIST changes: -PROHANCE 279.3MG/ML 15ML VIAL ONE; -PROHANCE 279.3MG/ML 5ML VIAL ONE
== END ==
LOC: M LAB REF 14:03
PROVIDERS: ATTEND Nurse Practitioner Family
DX: E83.42 Hypomagnesemia (principal)

== ENCOUNTER → 2022-01-21 | Outpatient (REF) | payer MEDICARE ==
[~2022-01-21] MED LIST changes: +POTA-150 PO; -POTA10TA17 PO
== END ==
LOC: M LAB REF 17:00
PROVIDERS: ATTEND Nurse Practitioner Family
DX: N39.0 Urinary tract infection, site not specified (principal)

== ENCOUNTER 2022-05-23 10:42 | Emergency (ER) | payer MEDICARE ==
[~2022-05-23] VITALS: Ht 149.9 cm; Wt 87.3 kg
[~2022-05-23 10:42] MED LIST changes: -POTA10CA32 PO; +POTA10CA33 PO
[2022-05-23 13:44] LABS: BASO # 0.1 10^3/uL (0.0-0.2); BASO % 0.6 % (0.0-1.0); EOS # 0.2 10^3/uL (0.0-0.5); EOS % 1.5 % (0.0-3.0); HEMATOCRIT 40.9 % (36.0-47.0); HEMOGLOBIN 13.3 g/dl (12.0-15.5); LYMPH # 1.5 10^3/uL (1.5-5.0); MEAN CORPUSCULAR HEMOGLOBIN 29.4 pg (27.0-33.0); MEAN CORPUSCULAR HGB CONC 32.5 g/dl (32.0-36.5); MEAN CORPUSCULAR VOLUME 90.5 fl (80.0-96.0); MONO # 0.7 10^3/uL (0.0-0.8); MONO % 5.1 % (2.0-8.0); NEUTROPHILS # 10.9 10^3/uL (1.5-8.5); NEUTROPHILS % 81.1 % (36.0-66.0); PLATELET COUNT, AUTOMATED 275 10^3/uL (150-450); RED BLOOD COUNT 4.52 10^6/uL (4.00-5.40); WHITE BLOOD COUNT 13.4 10^3/uL (4.0-10.0)
[2022-05-23 13:57] LABS: INR 3.94; PROTHROMBIN TIME 39.1 SECONDS (12.5-14.5)
[2022-05-23 14:22] LABS: CREATININE FOR GFR 1.92 MG/DL (0.55-1.30); POTASSIUM SERUM 3.4 MMOL/L (3.5-5.1)
[2022-05-23 15:37] VITALS: BP 127/70
== END 2022-05-23 15:40 | disposition home or self-care (01) ==
LOC: M ED 10:42
DX: N95.0 Postmenopausal bleeding (principal); D25.9 Leiomyoma of uterus, unspecified; R93.89 Abnormal findings on diagnostic imaging of other specified body structures; N18.9 Chronic kidney disease, unspecified; E87.6 Hypokalemia; I48.91 Unspecified atrial fibrillation; I25.10 Atherosclerotic heart disease of native coronary artery without angina pectoris; I10 Essential (primary) hypertension; J45.909 Unspecified asthma, uncomplicated; G47.30 Sleep apnea, unspecified; K21.9 Gastro-esophageal reflux disease without esophagitis; E03.9 Hypothyroidism, unspecified; Z98.61 Coronary angioplasty status; Z95.1 Presence of aortocoronary bypass graft; Z79.01 Long term (current) use of anticoagulants; Z79.890 Hormone replacement therapy; Z79.899 Other long term (current) drug therapy; Z88.6 Allergy status to analgesic agent; Z88.8 Allergy status to other drugs, medicaments and biological substances

== ENCOUNTER → 2022-05-27 | Outpatient (REF) | payer MEDICARE | LOC: M PLALAB 10:17 | PROVIDERS: ATTEND Nurse Practitioner Family | DX: C54.1 Malignant neoplasm of endometrium (principal) ==

== ENCOUNTER → 2022-06-28 | Outpatient (CLI) | payer MEDICARE ==
[~2022-06-28] MED LIST changes: +PROHANCE 279.3MG/ML 5ML VIAL ONE
== END ==
LOC: M PLAIMG 10:29
PROVIDERS: ATTEND Internal Medicine Gastroenterology
DX: D37.8 Neoplasm of uncertain behavior of other specified digestive organs (principal)
CPT/HCPCS: 74183; A9576

== ENCOUNTER → 2022-07-02 | Outpatient (CLI) | payer MEDICARE ==
[~2022-07-02] MED LIST changes: -PROHANCE 279.3MG/ML 5ML VIAL ONE
== END ==
LOC: M PLAIMG 11:12
PROVIDERS: ATTEND Internal Medicine Gastroenterology
DX: D37.8 Neoplasm of uncertain behavior of other specified digestive organs (principal)

== ENCOUNTER → 2022-07-19 | Outpatient (CLI) | payer MEDICARE ==
[~2022-07-19] MED LIST changes: +GASTROGRAFIN SOLUTION 30ML As Ordered ONE; +ISOVUE-370 76% 100ML VIAL As Ordered ONE
== END ==
LOC: M RAD 11:09
PROVIDERS: ATTEND Obstetrics & Gynecology Gynecologic Oncology
DX: C54.1 Malignant neoplasm of endometrium (principal)
CPT/HCPCS: 74176; Q9963

== ENCOUNTER → 2023-01-21 | Outpatient (CLI) | payer MEDICARE ==
[~2023-01-21] MED LIST changes: -GASTROGRAFIN SOLUTION 30ML As Ordered ONE; -ISOVUE-370 76% 100ML VIAL As Ordered ONE; +ISOVUE-370 76% 100ML VIAL ONE; -POTA10CA33 PO; +POTA10CA60 PO
== END ==
LOC: M PLAIMG 08:21
PROVIDERS: ATTEND Emergency Medicine
DX: R91.8 Other nonspecific abnormal finding of lung field (principal); R59.1 Generalized enlarged lymph nodes
CPT/HCPCS: 71260; Q9967

== ENCOUNTER 2023-03-05 16:32 | Inpatient (IN) | payer MEDICARE ==
[~2023-03-05] VITALS: Ht 152.4 cm; Wt 72.6 kg
[~2023-03-05 16:32] MED LIST changes: -ISOVUE-370 76% 100ML VIAL ONE
[2023-03-05] MEDS: METOPROLOL 5 MG/5 ML VIAL IV SCH ×3 (17:40→17:45)
[2023-03-05 17:52] LABS: BASO # 0.1 10^3/uL (0.0-0.2); BASO % 0.5 % (0.0-1.0); EOS # 0.1 10^3/uL (0.0-0.5); EOS % 0.6 % (0.0-3.0); HEMOGLOBIN 11.2 g/dl (12.0-15.5); LYMPH # 0.3 10^3/uL (1.5-5.0); LYMPH % 2.3 % (24.0-44.0); MEAN CORPUSCULAR HEMOGLOBIN 31.2 pg (27.0-33.0); MEAN CORPUSCULAR VOLUME 97.5 fl (80.0-96.0); MONO # 0.8 10^3/uL (0.0-0.8); MONO % 6.7 % (2.0-8.0); NEUTROPHILS # 10.9 10^3/uL (1.5-8.5); NEUTROPHILS % 86.1 % (36.0-66.0); PLATELET COUNT, AUTOMATED 277 10^3/uL (150-450); RED BLOOD COUNT 3.59 10^6/uL (4.00-5.40); WHITE BLOOD COUNT 12.6 10^3/uL (4.0-10.0)
[2023-03-05] MEDS ORDERED: METOPROLOL TART 25 MG TABLET PO ONE (17:55)
[2023-03-05 17:57] LABS: BILIRUBIN,TOTAL 0.7 MG/DL (0.3-1.2); CALCIUM LEVEL 10.1 MG/DL (8.3-10.6); CK-MB VALUE MASS 1.2 NG/ML (<3.6); CREATININE FOR GFR 2.07 MG/DL (0.55-1.30); GLOMERULAR FILTRATION RATE 24.7 (>39); TOTAL PROTEIN 6.7 G/DL (5.7-8.2)
[2023-03-05 17:58] LABS: MB/CK RELATIVE INDEX 3.15 (< OR =4)
[2023-03-05 18:19] LABS: INR 3.96; PROTHROMBIN TIME 37.2 SECONDS (12.5-14.5)
[2023-03-05 18:43] VITALS: BP 119/66
[2023-03-05] MEDS ORDERED: ONDA-83 PO (22:21)
[2023-03-05] MEDS ORDERED: IPRA0.00 INH (22:21)
[2023-03-05] MEDS ORDERED: BENZ200C70 PO (22:21)
[2023-03-05] MEDS ORDERED: MAGN64TASA PO (22:21)
[2023-03-05] MEDS ORDERED: POTA-298 PO (22:23)
[2023-03-05] MEDS ORDERED: HOME MED LIST COMPLETE! XX SCH (22:35)
[2023-03-06 00:55] VITALS: BP 119/60; TEMP 97.5; O2SAT 96
[2023-03-06] MEDS ORDERED: ALBUTEROL SULFATE 2.5MG/0.5ML INH NEB SOLN NEB PRN (03:00)
[2023-03-06] MEDS ORDERED: ACETAMINOPHEN TAB 650MG DOSE (2X325MG) PO PRN (03:00)
[2023-03-06 04:00] VITALS: BP 106/50; TEMP 97.2; O2SAT 98
[2023-03-06 05:40] LABS: CALCIUM LEVEL 9.7 MG/DL (8.3-10.6); CREATININE FOR GFR 2.01 MG/DL (0.55-1.30); GLOMERULAR FILTRATION RATE 25.6 (>39); POTASSIUM SERUM 5.3 MMOL/L (3.5-5.1)
[2023-03-06 08:00] VITALS: BP 99/55; TEMP 97.8; O2SAT 94
[2023-03-06] MEDS: IPRATROPIUM 0.5MG/ALBUTEROL 2.5MG INH SOL UD 3ML (DUONEB) NEB SCH ×3 (08:00→20:51)
[2023-03-06] MEDS ORDERED: NORCO, ANEXSIA 5/325MG TABLET (HYDROcodone/ACETAMINOPHEN) PO PRN (08:20)
[2023-03-06] MEDS ORDERED: ALLO300T2 PO (08:59)
[2023-03-06] MEDS ORDERED: FUROSEMIDE 40MG/4ML VIAL IV SCH (09:00)
[2023-03-06] MEDS ORDERED: TORSEMIDE 20 MG TAB PO SCH (09:00)
[2023-03-06] MEDS ORDERED: SPIRONOLACTONE 25 MG TAB PO SCH (09:00)
[2023-03-06] MEDS: AMIODARONE 200 MG TAB (PACERONE) PO SCH (09:27)
[2023-03-06] MEDS: BENZONATATE 100MG CAPSULE PO SCH ×3 (09:27→21:09)
[2023-03-06] MEDS: allopurinoL 300 MG TAB PO SCH (09:27)
[2023-03-06] MEDS: LEVOTHYROXINE 75MCG TABLET (0.075MG) PO SCH (09:27)
[2023-03-06] MEDS: FUROSEMIDE 100MG/10ML VIAL IV SCH ×2 (09:27→17:56)
[2023-03-06] MEDS ORDERED: PATIROMER SORBITEX CALCIUM 8.4 GM POWDER PACKET (VELTASSA) PO ONE (10:00)
[2023-03-06] MEDS ORDERED: metOLazone 2.5 MG TAB PO PRN (10:45)
[2023-03-06 12:00] VITALS: BP 106/74; TEMP 97.1; O2SAT 93
[2023-03-06] MEDS: DIGOXIN 0.0625MG PER 1/2TABLET PO SCH (14:22)
[2023-03-06] MEDS: NYSTATIN 100,000 UNITS/GM TOPICAL PWD 15GM TOP SCH ×2 (14:22→21:09)
[2023-03-06] MEDS: RIVAROXABAN 15MG TAB (XARELTO) PO SCH (17:56)
[2023-03-06 20:00] VITALS: BP 106/78; TEMP 97.9; O2SAT 94
[2023-03-07] MEDS: IPRATROPIUM 0.5MG/ALBUTEROL 2.5MG INH SOL UD 3ML (DUONEB) NEB SCH ×4 (02:54→20:07)
[2023-03-07] MEDS: LEVOTHYROXINE 75MCG TABLET (0.075MG) PO SCH (06:10)
[2023-03-07] MEDS: BENZONATATE 100MG CAPSULE PO SCH ×3 (06:10→21:12)
[2023-03-07 06:49] LABS: BASO % 0.3 % (0.0-1.0); EOS # 0.1 10^3/uL (0.0-0.5); EOS % 0.9 % (0.0-3.0); HEMATOCRIT 31.8 % (36.0-47.0); HEMOGLOBIN 10.2 g/dl (12.0-15.5); LYMPH # 0.4 10^3/uL (1.5-5.0); LYMPH % 3.6 % (24.0-44.0); MEAN CORPUSCULAR HEMOGLOBIN 31.6 pg (27.0-33.0); MEAN CORPUSCULAR HGB CONC 32.1 g/dl (32.0-36.5); MEAN CORPUSCULAR VOLUME 98.5 fl (80.0-96.0); MONO # 0.8 10^3/uL (0.0-0.8); MONO % 6.4 % (2.0-8.0); NEUTROPHILS # 10.3 10^3/uL (1.5-8.5); NEUTROPHILS % 84.8 % (36.0-66.0); PLATELET COUNT, AUTOMATED 233 10^3/uL (150-450); RED BLOOD COUNT 3.23 10^6/uL (4.00-5.40); WHITE BLOOD COUNT 12.1 10^3/uL (4.0-10.0)
[2023-03-07 06:57] VITALS: BP 106/52; TEMP 97.5; O2SAT 93
[2023-03-07 07:21] LABS: CALCIUM LEVEL 9.6 MG/DL (8.3-10.6); CREATININE FOR GFR 1.96 MG/DL (0.55-1.30); GLOMERULAR FILTRATION RATE 26.3 (>39); POTASSIUM SERUM 4.5 MMOL/L (3.5-5.1)
[2023-03-07] MEDS ORDERED: allopurinoL 300 MG TAB PO SCH (09:00)
[2023-03-07] MEDS: allopurinoL 300 MG TAB PO SCH (09:54)
[2023-03-07] MEDS: NYSTATIN 100,000 UNITS/GM TOPICAL PWD 15GM TOP SCH ×2 (09:54→21:12)
[2023-03-07] MEDS: FUROSEMIDE 100MG/10ML VIAL IV SCH ×2 (09:58→18:07)
[2023-03-07 14:00] VITALS: BP 108/61; TEMP 97.7; O2SAT 92
[2023-03-07] MEDS ORDERED: metOLazone 5 MG TAB PO ONE (15:00)
[2023-03-07] MEDS: RIVAROXABAN 15MG TAB (XARELTO) PO SCH (18:06)
[2023-03-07] MEDS: SPIRONOLACTONE 25 MG TAB PO SCH (18:06)
[2023-03-07] MEDS ORDERED: ONDANSETRON 4MG 2ML VIAL IV PRN (19:25)
[2023-03-07 19:46] VITALS: BP 110/73; TEMP 97.5; O2SAT 93
[2023-03-08 05:33] LABS: BASO % 0.3 % (0.0-1.0); EOS # 0.1 10^3/uL (0.0-0.5); EOS % 0.6 % (0.0-3.0); HEMATOCRIT 31.9 % (36.0-47.0); HEMOGLOBIN 10.4 g/dl (12.0-15.5); LYMPH # 0.4 10^3/uL (1.5-5.0); LYMPH % 2.9 % (24.0-44.0); MEAN CORPUSCULAR HEMOGLOBIN 31.9 pg (27.0-33.0); MEAN CORPUSCULAR HGB CONC 32.6 g/dl (32.0-36.5); MEAN CORPUSCULAR VOLUME 97.9 fl (80.0-96.0); MONO # 0.7 10^3/uL (0.0-0.8); NEUTROPHILS # 10.5 10^3/uL (1.5-8.5); NEUTROPHILS % 86.7 % (36.0-66.0); PLATELET COUNT, AUTOMATED 249 10^3/uL (150-450); RED BLOOD COUNT 3.26 10^6/uL (4.00-5.40); WHITE BLOOD COUNT 12.1 10^3/uL (4.0-10.0)
[2023-03-08 05:59] LABS: CALCIUM LEVEL 9.5 MG/DL (8.3-10.6); CREATININE FOR GFR 1.9 MG/DL (0.55-1.30); GLOMERULAR FILTRATION RATE 27.3 (>39); POTASSIUM SERUM 3.6 MMOL/L (3.5-5.1)
[2023-03-08] MEDS: BENZONATATE 100MG CAPSULE PO SCH (06:25)
[2023-03-08] MEDS: LEVOTHYROXINE 75MCG TABLET (0.075MG) PO SCH (06:25)
[2023-03-08 06:50] VITALS: BP 108/73; TEMP 97.9; O2SAT 90
[2023-03-08] MEDS ORDERED: metOLazone 5 MG TAB PO ONE (07:00)
[2023-03-08] MEDS: IPRATROPIUM 0.5MG/ALBUTEROL 2.5MG INH SOL UD 3ML (DUONEB) NEB SCH (07:35)
[2023-03-08] MEDS: FUROSEMIDE 100MG/10ML VIAL IV SCH (09:00)
[2023-03-08] MEDS ORDERED: POTASSIUM CHLORIDE 10MEQ SR TABLET PO SCH (09:00)
[2023-03-08 09:20] VITALS: BP 106/57; TEMP 98.1; O2SAT 92
[2023-03-08] MEDS: DIGOXIN 0.0625MG PER 1/2TABLET PO SCH (09:45)
[2023-03-08] MEDS: AMIODARONE 200 MG TAB (PACERONE) PO SCH (09:45)
[2023-03-08] MEDS: allopurinoL 300 MG TAB PO SCH (09:45)
[2023-03-08] MEDS: SPIRONOLACTONE 25 MG TAB PO SCH (09:45)
[2023-03-08] MEDS: NYSTATIN 100,000 UNITS/GM TOPICAL PWD 15GM TOP SCH (09:46)
[2023-03-08] MEDS ORDERED: SPIR-10 PO (11:06)
[2023-03-08] MEDS ORDERED: POTA-298 PO (11:06)
[2023-03-08] MEDS ORDERED: TORS20TA2 PO (11:06)
== END 2023-03-08 12:40 | disposition home health service (06) | DRG 292 ==
LOC: M ED 16:32 → M ED INP 21:54 → M PCU 03-06 00:45 → M MS5PR 03-06 20:00
PROVIDERS: ADMIT Internal Medicine; ATTEND Internal Medicine Nephrology
DX: I13.0 Hypertensive heart and chronic kidney disease with heart failure and stage 1 through stage 4 chronic kidney disease, or unspecified chronic kidney disease (principal); C78.01 Secondary malignant neoplasm of right lung; C78.02 Secondary malignant neoplasm of left lung; N18.4 Chronic kidney disease, stage 4 (severe); I50.22 Chronic systolic (congestive) heart failure; C54.1 Malignant neoplasm of endometrium; E03.9 Hypothyroidism, unspecified; J45.909 Unspecified asthma, uncomplicated; E66.9 Obesity, unspecified; I48.91 Unspecified atrial fibrillation; K74.60 Unspecified cirrhosis of liver; Z66 Do not resuscitate; I08.1 Rheumatic disorders of both mitral and tricuspid valves; E87.70 Fluid overload, unspecified; M10.9 Gout, unspecified; I25.10 Atherosclerotic heart disease of native coronary artery without angina pectoris; Z79.890 Hormone replacement therapy; Z79.899 Other long term (current) drug therapy; Z88.6 Allergy status to analgesic agent; E87.5 Hyperkalemia; G47.33 Obstructive sleep apnea (adult) (pediatric); B37.2 Candidiasis of skin and nail; K21.9 Gastro-esophageal reflux disease without esophagitis; Z90.710 Acquired absence of both cervix and uterus; Z90.49 Acquired absence of other specified parts of digestive tract; Z88.8 Allergy status to other drugs, medicaments and biological substances

== ENCOUNTER 2023-03-11 19:15 | Emergency (ER) | payer MEDICARE ==
[~2023-03-11 19:15] MED LIST changes: +ALLO300T2 PO; +BENZ200C70 PO; +IPRA0.00 INH; +MAGN64TASA PO; +ONDA-83 PO; +POTA-298 PO
[2023-03-11 19:16] VITALS: TEMP 98.6
[2023-03-11 20:11] LABS: BASO # 0.1 10^3/uL (0.0-0.2); BASO % 0.4 % (0.0-1.0); EOS % 0.2 % (0.0-3.0); HEMATOCRIT 35.2 % (36.0-47.0); HEMOGLOBIN 11.2 g/dl (12.0-15.5); LYMPH # 0.3 10^3/uL (1.5-5.0); LYMPH % 1.9 % (24.0-44.0); MEAN CORPUSCULAR HEMOGLOBIN 31.5 pg (27.0-33.0); MEAN CORPUSCULAR HGB CONC 31.8 g/dl (32.0-36.5); MEAN CORPUSCULAR VOLUME 98.9 fl (80.0-96.0); MONO # 0.8 10^3/uL (0.0-0.8); MONO % 5.3 % (2.0-8.0); NEUTROPHILS % 87.7 % (36.0-66.0); PLATELET COUNT, AUTOMATED 248 10^3/uL (150-450); RED BLOOD COUNT 3.56 10^6/uL (4.00-5.40); WHITE BLOOD COUNT 15.9 10^3/uL (4.0-10.0)
[2023-03-11 20:33] LABS: ALBUMIN 2.8 G/DL (3.2-5.2); BILIRUBIN,DIRECT 0.3 MG/DL (<0.4); BILIRUBIN,TOTAL 0.6 MG/DL (0.3-1.2); CALCIUM LEVEL 10.6 MG/DL (8.3-10.6); CREATININE FOR GFR 2.18 MG/DL (0.55-1.30); GLOMERULAR FILTRATION RATE 23.3 (>39); POTASSIUM SERUM 5.6 MMOL/L (3.5-5.1); TOTAL PROTEIN 6.5 G/DL (5.7-8.2)
[2023-03-11 20:49] LABS: INR 2.38; PROTHROMBIN TIME 25.2 SECONDS (12.5-14.5)
[2023-03-11 20:50] LABS: PARTIAL THROMBOPLASTIN TIME 42.6 SECONDS (24.8-34.2)
[2023-03-11] MEDS ORDERED: FLEET ENEMA PR ONE (21:35)
[2023-03-11] MEDS ORDERED: COLA100C5 PO (23:27)
[2023-03-11 23:31] VITALS: BP 132/71; O2SAT 95
== END 2023-03-11 23:40 | disposition home or self-care (01) ==
LOC: M ED 19:15
DX: K59.00 Constipation, unspecified (principal); E87.5 Hyperkalemia; C78.00 Secondary malignant neoplasm of unspecified lung; R22.41 Localized swelling, mass and lump, right lower limb; N28.1 Cyst of kidney, acquired; I25.10 Atherosclerotic heart disease of native coronary artery without angina pectoris; I50.9 Heart failure, unspecified; I48.91 Unspecified atrial fibrillation; E03.9 Hypothyroidism, unspecified; Z85.42 Personal history of malignant neoplasm of other parts of uterus; Z79.899 Other long term (current) drug therapy; Z88.6 Allergy status to analgesic agent; Z88.8 Allergy status to other drugs, medicaments and biological substances